=== PATIENT | female | born 2000 | race African-American/Black ===

== ENCOUNTER 2018-03-28 01:36 | Inpatient (IN) | payer OTHER ==
[2018-03-28] VITALS (27 sets, daily range): BP systolic 109–167; BP diastolic 58–108
[~2018-03-28] VITALS: Ht 167.6 cm; Wt 59.9 kg
[2018-03-28] MEDS ORDERED: HUMALOG100 UNIT/1 SUBQ (01:46)
[2018-03-28 01:59] LABS: ABSOLUTE NEUTROPHILS 5.1 thou/uL (1.4-8.2); BASOPHILS 0.3 % (0.0-2.0); EOSINOPHILS 0.2 % (0.0-3.0); HEMATOCRIT 44.3 % (37.0-47.0); HEMOGLOBIN 13.2 gm/dL (12.0-15.0); LYMPHOCYTES 37.3 % (24.0-44.0); MCH 28.9 pg (26.0-34.0); MCHC 29.9 g/dL (28.0-37.0); MCV 96.8 fL (80.0-100.0); MONOCYTES 7.2 % (1.0-8.0); PLATELET COUNT 349 thou/uL (150-400); RBC 4.57 mil/uL (4.20-5.00); RDW 15.6 % (10.5-14.5); WBC 9.2 thou/uL (4.0-11.0)
[2018-03-28 02:01] LABS: URINE BILIRUBIN NEGATIVE (Negative); URINE BLOOD 1+ (Negative); URINE CLARITY CLEAR; URINE COLOR YELLOW; URINE GLUCOSE-RANDOM* 3+ (Negative); URINE KETONES 3+ (Negative); URINE LEUKOCYTES NEGATIVE (Negative); URINE NITRITE NEGATIVE (Negative); URINE PROTEIN (DIPSTICK) 1+ (Negative); URINE SPECIFIC GRAVITY 1.025 (1.005-1.035); URINE UROBILINOGEN 0.2 E.U./dl (0.2-1.0)
[2018-03-28 02:09] LABS: CALCIUM 9.4 mg/dL (8.5-10.1); CREATININE 1.3 mg/dL (0.6-1.0)
[2018-03-28 02:12] LABS: ALBUMIN 3.7 g/dL (3.4-5.0); TOTAL BILIRUBIN 0.7 mg/dL (<0.1-1.0); TOTAL PROTEIN 8.3 g/dL (6.4-8.2)
[2018-03-28 02:13] LABS: POTASSIUM 5.3 mmol/L (3.5-5.1)
[2018-03-28 02:19] LABS: CASTS None Seen /LPF (None Seen); MUCUS 0-3 Light strn/LPF (None Seen); SQUAMOUS 4-10 Moderate /LPF (0-3)
[2018-03-28 02:20] LABS: BACTERIA 1-9 Few /HPF (None Seen); CRYSTALS None Seen /LPF (None Seen); URINE RBC 3-10 Few /HPF (0-2); URINE WBC 0-5 Rare /HPF (0-5)
[2018-03-28 03:13] LABS: BE(vivo) -23.5 mmol/L (-2 to +3); HCO3 5.6 mmol/L (22.0-26.0); PCO2 VENOUS 21.3 mmHg (41.0-51.0); PO2 VENOUS 60.3 mmHg (35.0-45.0)
[2018-03-28] MEDS ORDERED: LANTUS100 UNIT/M SUBQ (04:43)
[2018-03-28 04:59] LABS: ALBUMIN 3.3 g/dL (3.4-5.0); CALCIUM 8.6 mg/dL (8.5-10.1); CREATININE 1.2 mg/dL (0.6-1.0); MAGNESIUM 1.8 mg/dL (1.8-2.4); PHOSPHORUS 4.4 mg/dL (2.5-4.9); POTASSIUM 5.3 mmol/L (3.5-5.1)
[2018-03-28 12:11] LABS: ALBUMIN 2.8 g/dL (3.4-5.0); CALCIUM 8.2 mg/dL (8.5-10.1); CREATININE 0.9 mg/dL (0.6-1.0); MAGNESIUM 1.8 mg/dL (1.8-2.4); PHOSPHORUS 3.3 mg/dL (2.5-4.9)
[2018-03-28 16:43] LABS: ALBUMIN 2.6 g/dL (3.4-5.0); CALCIUM 8.1 mg/dL (8.5-10.1); CREATININE 0.8 mg/dL (0.6-1.0); MAGNESIUM 1.5 mg/dL (1.8-2.4); PHOSPHORUS 2.7 mg/dL (2.5-4.9); POTASSIUM 4.2 mmol/L (3.5-5.1)
[2018-03-28 20:23] LABS: ALBUMIN 2.7 g/dL (3.4-5.0); CALCIUM 8.4 mg/dL (8.5-10.1); CREATININE 0.8 mg/dL (0.6-1.0); MAGNESIUM 1.4 mg/dL (1.8-2.4); PHOSPHORUS 2.2 mg/dL (2.5-4.9); POTASSIUM 3.8 mmol/L (3.5-5.1)
[2018-03-28 23:06] LABS: GLYCOHEMOGLOBIN (HGB A1C) 14.3 % (4.8-5.6)
[2018-03-29] VITALS (18 sets, daily range): BP systolic 121–169; BP diastolic 70–112
[2018-03-29 04:57] LABS: ABSOLUTE NEUTROPHILS 4.2 thou/uL (1.4-8.2); BASOPHILS 0.1 % (0.0-2.0); EOSINOPHILS 0.8 % (0.0-3.0); HEMATOCRIT 37.1 % (37.0-47.0); HEMOGLOBIN 11.8 gm/dL (12.0-15.0); LYMPHOCYTES 29.1 % (24.0-44.0); MCH 28.9 pg (26.0-34.0); MCHC 31.8 g/dL (28.0-37.0); MONOCYTES 5.9 % (1.0-8.0); POLYS 64.1 % (36.0-66.0); RBC 4.09 mil/uL (4.20-5.00); RDW 14.7 % (10.5-14.5); WBC 6.5 thou/uL (4.0-11.0)
[2018-03-29 05:00] LABS: MCV 90.8 fL (80.0-100.0); PLATELET COUNT 262 thou/uL (150-400)
[2018-03-29 05:14] LABS: ALBUMIN 2.9 g/dL (3.4-5.0); CREATININE 1.1 mg/dL (0.6-1.0); MAGNESIUM 1.8 mg/dL (1.8-2.4); PHOSPHORUS 1.7 mg/dL (2.5-4.9); POTASSIUM 3.5 mmol/L (3.5-5.1); TOTAL BILIRUBIN 0.5 mg/dL (<0.1-1.0); TOTAL PROTEIN 6.8 g/dL (6.4-8.2)
[2018-03-29 05:45] LABS: LARGE PLATELETS OCCASIONAL
[2018-03-29 08:41] LABS: ALBUMIN 2.6 g/dL (3.4-5.0); CALCIUM 7.9 mg/dL (8.5-10.1); CREATININE 0.7 mg/dL (0.6-1.0); MAGNESIUM 1.8 mg/dL (1.8-2.4); PHOSPHORUS 2.3 mg/dL (2.5-4.9)
[2018-03-29 12:37] LABS: ALBUMIN 2.5 g/dL (3.4-5.0); CALCIUM 7.8 mg/dL (8.5-10.1); CREATININE 0.8 mg/dL (0.6-1.0); MAGNESIUM 1.6 mg/dL (1.8-2.4); PHOSPHORUS 3.4 mg/dL (2.5-4.9); POTASSIUM 3.7 mmol/L (3.5-5.1)
[2018-03-29 16:45] LABS: ALBUMIN 2.5 g/dL (3.4-5.0); CALCIUM 7.8 mg/dL (8.5-10.1); CREATININE 0.8 mg/dL (0.6-1.0); MAGNESIUM 2.3 mg/dL (1.8-2.4); PHOSPHORUS 2.9 mg/dL (2.5-4.9); POTASSIUM 3.8 mmol/L (3.5-5.1)
[2018-03-30] VITALS (11 sets, daily range): BP systolic 119–157; BP diastolic 74–113
[2018-03-30 04:09] LABS: ALBUMIN 2.6 g/dL (3.4-5.0); CALCIUM 8.3 mg/dL (8.5-10.1); CREATININE 0.7 mg/dL (0.6-1.0); POTASSIUM 3.2 mmol/L (3.5-5.1); TOTAL BILIRUBIN 0.5 mg/dL (<0.1-1.0); TOTAL PROTEIN 6.2 g/dL (6.4-8.2)
[2018-03-30 04:16] LABS: ABSOLUTE NEUTROPHILS 2.1 thou/uL (1.4-8.2); BASOPHILS 0.1 % (0.0-2.0); EOSINOPHILS 1.7 % (0.0-3.0); HEMATOCRIT 34.4 % (37.0-47.0); HEMOGLOBIN 11.7 gm/dL (12.0-15.0); LYMPHOCYTES 54.3 % (24.0-44.0); MCH 29.8 pg (26.0-34.0); MCV 87.6 fL (80.0-100.0); MONOCYTES 7.9 % (1.0-8.0); PLATELET COUNT 226 thou/uL (150-400); RBC 3.92 mil/uL (4.20-5.00); RDW 14.6 % (10.5-14.5); WBC 5.9 thou/uL (4.0-11.0)
[2018-03-30] MEDS ORDERED: LISINOPRIL10 MG PO (08:21)
[2018-03-30] MEDS ORDERED: LANTUS100 UNIT/M SUBQ (08:22)
[2018-03-30] MEDS ORDERED: NOVOLOG100 UNIT/1 SUBQ (08:22)
[2018-03-30 08:40] LABS: ALBUMIN 2.6 g/dL (3.4-5.0); CALCIUM 8.4 mg/dL (8.5-10.1); CREATININE 0.6 mg/dL (0.6-1.0); PHOSPHORUS 3.5 mg/dL (2.5-4.9); POTASSIUM 3.3 mmol/L (3.5-5.1)
== END 2018-03-30 11:13 | disposition home or self-care (01) | DRG 637 ==
LOC: ER 01:36 → EROBS 03:33 → ICU 03:33 → 3W 22:43 → ICU 03-29 07:10
PROVIDERS: Emergency Medicine; Hospitalist; Nurse Practitioner Family
DX: E10.10 Type 1 diabetes mellitus with ketoacidosis without coma (principal); N17.0 Acute kidney failure with tubular necrosis; Z88.0 Allergy status to penicillin; Z79.4 Long term (current) use of insulin; Z91.19 Patient's noncompliance with other medical treatment and regimen; Z79.899 Other long term (current) drug therapy; Z28.21 Immunization not carried out because of patient refusal
CPT/HCPCS: 10078; 10779

== ENCOUNTER 2018-05-22 15:22 | Emergency (ER) | payer OTHER ==
[~2018-05-22] VITALS: Ht 165.1 cm; Wt 59.0 kg
[~2018-05-22 15:22] MED LIST: HUMALOG100 UNIT/1 SUBQ; LANTUS100 UNIT/M SUBQ; LISINOPRIL10 MG PO; NOVOLOG100 UNIT/1 SUBQ
[2018-05-22 15:39] LABS: URINE BILIRUBIN NEGATIVE (Negative); URINE BLOOD 2+ (Negative); URINE CLARITY CLEAR; URINE COLOR YELLOW; URINE GLUCOSE-RANDOM* 3+ (Negative); URINE KETONES 1+ (Negative); URINE LEUKOCYTES-REFLEX NEGATIVE (Negative); URINE NITRITE-REFLEX NEGATIVE (Negative); URINE PROTEIN (DIPSTICK) 2+ (Negative); URINE UROBILINOGEN 0.2 E.U./dl (0.2-1.0)
[2018-05-22 15:46] LABS: CASTS None Seen /LPF (None Seen); SQUAMOUS 4-10 Moderate /LPF (0-3)
[2018-05-22 15:47] LABS: BACTERIA-REFLEX 1-9 Few /HPF (None Seen); CRYSTALS None Seen /LPF (None Seen); URINE RBC 3-10 Few /HPF (0-2); URINE WBC-REFLEX 0-5 Rare /HPF (0-5)
[2018-05-22 16:00] LABS: ABSOLUTE NEUTROPHILS 2.8 thou/uL (1.4-8.2); BASOPHILS 0.1 % (0.0-2.0); EOSINOPHILS 2.6 % (0.0-3.0); HEMATOCRIT 37.8 % (37.0-47.0); HEMOGLOBIN 12.5 gm/dL (12.0-15.0); LYMPHOCYTES 42.8 % (24.0-44.0); MCH 28.8 pg (26.0-34.0); MCHC 33.1 g/dL (28.0-37.0); MCV 87.1 fL (80.0-100.0); MONOCYTES 5.5 % (1.0-8.0); PLATELET COUNT 288 thou/uL (150-400); RBC 4.34 mil/uL (4.20-5.00); RDW 14.4 % (10.5-14.5); WBC 5.6 thou/uL (4.0-11.0)
[2018-05-22 16:08] LABS: CALCIUM 8.9 mg/dL (8.5-10.1); POTASSIUM 4.4 mmol/L (3.5-5.1)
[2018-05-22 16:14] LABS: ALBUMIN 3.1 g/dL (3.4-5.0); TOTAL BILIRUBIN 0.3 mg/dL (<0.1-1.0); TOTAL PROTEIN 7.2 g/dL (6.4-8.2)
[2018-05-22] MEDS ORDERED: LISINOPRIL10 MG PO (20:14)
[2018-05-22] MEDS ORDERED: DOXYCYCLINE 10100 MG PO (20:14)
[2018-05-22] MEDS ORDERED: PROBENECID500 MG PO (20:14)
[2018-05-22 20:27] VITALS: BP 157/109
== END 2018-05-22 20:28 | disposition home or self-care (01) ==
LOC: ER 15:22
PROVIDERS: Physician Assistant
DX: N73.9 Female pelvic inflammatory disease, unspecified (principal); E10.10 Type 1 diabetes mellitus with ketoacidosis without coma; Z88.0 Allergy status to penicillin

== ENCOUNTER 2018-06-28 23:10 | Emergency (ER) | payer OTHER ==
[~2018-06-28] VITALS: Ht 165.1 cm; Wt 61.2 kg
[~2018-06-28 23:10] MED LIST changes: +DOXYCYCLINE 10100 MG PO; +PROBENECID500 MG PO
[2018-06-28 23:50] LABS: BASOPHILS 0.2 % (0.0-2.0); EOSINOPHILS 1.3 % (0.0-3.0); HEMATOCRIT 34.5 % (37.0-47.0); HEMOGLOBIN 11.5 gm/dL (12.0-15.0); LYMPHOCYTES 48.2 % (24.0-44.0); MCH 28.4 pg (26.0-34.0); MCHC 33.2 g/dL (28.0-37.0); MCV 85.5 fL (80.0-100.0); MONOCYTES 4.4 % (1.0-8.0); PLATELET COUNT 250 thou/uL (150-400); POLYS 45.9 % (36.0-66.0); RBC 4.04 mil/uL (4.20-5.00); RDW 14.6 % (10.5-14.5); WBC 6.6 thou/uL (4.0-11.0)
[2018-06-28 23:58] LABS: ANION GAP 6 mmol/L (7-16); BUN 8 mg/dL (7-18); CALCIUM 8.8 mg/dL (8.5-10.1); CHLORIDE 96 mmol/L (98-107); CO2 28 mmol/L (21-32); CREATININE 0.8 mg/dL (0.6-1.0); GLUCOSE 452 mg/dL (74-106); POTASSIUM 3.8 mmol/L (3.5-5.1); SODIUM 130 mmol/L (136-145)
[2018-06-29 00:03] LABS: DIRECT BILIRUBIN < 0.1 mg/dL (<0.1-0.3); SGOT 11 U/L (15-37); SGPT 16 U/L (30-65); TOTAL BILIRUBIN 0.3 mg/dL (<0.1-1.0); TOTAL PROTEIN 6.6 g/dL (6.4-8.2)
[2018-06-29] MEDS ORDERED: TORADOL 10 MG T10 MG PO (03:01)
[2018-06-29] MEDS ORDERED: BENTYL 20 MG TA20 M1 PO (03:01)
[2018-06-29 04:48] VITALS: BP 157/99
== END 2018-06-29 04:48 | disposition home or self-care (01) ==
LOC: ER 23:10
PROVIDERS: Emergency Medicine
DX: E10.65 Type 1 diabetes mellitus with hyperglycemia (principal); R10.30 Lower abdominal pain, unspecified; M54.5 Low back pain; Z88.0 Allergy status to penicillin

== ENCOUNTER 2018-08-15 03:13 | Emergency (ER) | payer OTHER ==
[~2018-08-15] VITALS: Ht 165.1 cm; Wt 59.0 kg
[~2018-08-15 03:13] MED LIST changes: +BENTYL 20 MG TA20 M1 PO; +TORADOL 10 MG T10 MG PO
[2018-08-15 03:21] VITALS: BP 133/97
[2018-08-15] MEDS ORDERED: PEPCID20 MG PO (04:28)
== END 2018-08-15 04:38 | disposition home or self-care (01) ==
LOC: ER 03:13
DX: L50.9 Urticaria, unspecified (principal); E10.9 Type 1 diabetes mellitus without complications; Z88.0 Allergy status to penicillin

== ENCOUNTER 2019-05-25 17:09 | Emergency (ER) | payer OTHER ==
[~2019-05-25] VITALS: Ht 162.6 cm; Wt 63.5 kg
[~2019-05-25 17:09] MED LIST changes: +PEPCID20 MG PO
[2019-05-25 17:23] VITALS: BP 145/100
[2019-05-25 17:27] LABS: URINE BILIRUBIN NEGATIVE (Negative); URINE BLOOD 1+ (Negative); URINE CLARITY CLEAR; URINE COLOR YELLOW; URINE GLUCOSE-RANDOM* NEGATIVE (Negative); URINE KETONES NEGATIVE (Negative); URINE LEUKOCYTES-REFLEX NEGATIVE (Negative); URINE NITRITE-REFLEX NEGATIVE (Negative); URINE PROTEIN (DIPSTICK) 2+ (Negative); URINE UROBILINOGEN 0.2 E.U./dl (0.2-1.0)
[2019-05-25 17:35] LABS: BACTERIA-REFLEX 1-9 Few /HPF (None Seen); CASTS None Seen /LPF (None Seen); SQUAMOUS 0-3 Few /LPF (0-3); URINE RBC 3-10 Few /HPF (0-2); URINE WBC-REFLEX 0-5 Rare /HPF (0-5)
[2019-05-25 17:36] LABS: CRYSTALS None Seen /LPF (None Seen)
[2019-05-25] MEDS ORDERED: DIFLUCAN150 MG PO (18:45)
== END 2019-05-25 19:03 | disposition home or self-care (01) ==
LOC: ER 17:09
PROVIDERS: Physician Assistant
DX: B37.3 Candidiasis of vulva and vagina (principal); N89.8 Other specified noninflammatory disorders of vagina; E10.9 Type 1 diabetes mellitus without complications; Z88.0 Allergy status to penicillin

== ENCOUNTER 2019-09-15 20:14 | Inpatient (IN) | payer OTHER ==
[~2019-09-15] VITALS: Ht 165.1 cm; Wt 61.1 kg
[~2019-09-15 20:14] MED LIST changes: +DIFLUCAN150 MG PO
[2019-09-15 20:19] VITALS: BP 156/89
[2019-09-15 20:45] LABS: HEMATOCRIT 40.7 % (37.0-47.0); HEMOGLOBIN 12.7 gm/dL (12.0-15.0); MCH 28.8 pg (26.0-34.0); MCHC 31.1 g/dL (28.0-37.0); MCV 92.6 fL (80.0-100.0); PLATELET COUNT 359 thou/uL (150-400); WBC 13.9 thou/uL (4.0-11.0)
[2019-09-15 21:12] LABS: ALBUMIN 3.2 g/dL (3.4-5.0); CALCIUM 8.9 mg/dL (8.5-10.1); CREATININE 1.7 mg/dL (0.6-1.0); POTASSIUM 5.4 mmol/L (3.5-5.1); TOTAL BILIRUBIN 0.6 mg/dL (0.2-1.0); TOTAL PROTEIN 7.8 g/dL (6.4-8.2)
[2019-09-15 21:35] LABS: URINE BILIRUBIN NEGATIVE (Negative); URINE BLOOD 2+ (Negative); URINE CLARITY SL CLOUDY; URINE COLOR YELLOW; URINE GLUCOSE-RANDOM* 3+ (Negative); URINE KETONES 3+ (Negative); URINE NITRITE-REFLEX NEGATIVE (Negative); URINE PROTEIN (DIPSTICK) 2+ (Negative); URINE SPECIFIC GRAVITY 1.025 (1.005-1.035); URINE UROBILINOGEN 0.2 E.U./dl (0.2-1.0)
[2019-09-15] MEDS ORDERED: BASAGLAR K100 UNIT/1 SUBQ (21:38)
[2019-09-15 21:39] LABS: URINE LEUKOCYTES-REFLEX 1+ (Negative)
[2019-09-15] MEDS ORDERED: LABETALOL HCL100 MG PO (21:39)
[2019-09-15 21:45] LABS: SQUAMOUS 4-10 Moderate /LPF (0-3)
[2019-09-15 21:46] LABS: CASTS None Seen /LPF (None Seen); CRYSTALS None Seen /LPF (None Seen); URINE RBC 3-10 Few /HPF (0-2)
[2019-09-15 21:48] LABS: ABSOLUTE NEUTROPHILS 10.3 thou/uL (1.4-8.2); METAMYELOCYTES 1 %
[2019-09-15 21:49] LABS: LARGE PLATELETS FEW; PLATELET ESTIMATE NORMAL
--- NOTE | 2019-09-15 22:10 | NUR ---
Dr. De La Rosa notified that UA is from clean catch not straight cath
[2019-09-15 22:26] LABS: MAGNESIUM 2.3 mg/dL (1.8-2.4); PHOSPHORUS 7.1 mg/dL (2.5-4.9)
[2019-09-15 22:38] LABS: BE(vivo) -21.7 mmol/L (-2 to +3); HCO3 4.6 mmol/L (22.0-26.0); PO2 136.2 mmHg (80.0-100.0); sO2 98.1 % (92.0-98.0)
[2019-09-15 22:39] LABS: PCO2 13.3 mmHg (35.0-45.0)
[2019-09-15 22:47] VITALS: BP 145/89
--- NOTE | 2019-09-15 22:50 | NUR ---
ATTEMPTED TO CALL REPORT TO ICU NURSE AT THIS TIME. UNABLE TO TAKE REPORT
[2019-09-15 23:13] LABS: ALBUMIN 3.1 g/dL (3.4-5.0); CALCIUM 8.1 mg/dL (8.5-10.1); CREATININE 1.5 mg/dL (0.6-1.0); PHOSPHORUS 5.3 mg/dL (2.5-4.9)
[2019-09-15 23:20] VITALS: BP 145/96
[2019-09-15 23:20] LABS: POTASSIUM 4.4 mmol/L (3.5-5.1)
[2019-09-16] VITALS (32 sets, daily range): BP systolic 108–159; BP diastolic 67–111
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
[2019-09-16 03:41] LABS: ALBUMIN 2.6 g/dL (3.4-5.0); CALCIUM 7.7 mg/dL (8.5-10.1); CREATININE 1.1 mg/dL (0.6-1.0); MAGNESIUM 1.8 mg/dL (1.8-2.4); PHOSPHORUS 3.3 mg/dL (2.5-4.9)
[2019-09-16 08:19] LABS: ABSOLUTE NEUTROPHILS 6.4 thou/uL (1.4-8.2); BASOPHILS 0.5 % (0.0-2.0); EOSINOPHILS 0.2 % (0.0-3.0); HEMOGLOBIN 12.2 gm/dL (12.0-15.0); LYMPHOCYTES 29.5 % (24.0-44.0); MCH 28.7 pg (26.0-34.0); MCHC 32.9 g/dL (28.0-37.0); MONOCYTES 10.5 % (1.0-8.0); PLATELET COUNT 317 thou/uL (150-400); POLYS 59.3 % (36.0-66.0); RBC 4.25 mil/uL (4.20-5.00); RDW 14.3 % (10.5-14.5); WBC 10.8 thou/uL (4.0-11.0)
[2019-09-16 08:37] LABS: ALBUMIN 2.5 g/dL (3.4-5.0); CALCIUM 7.8 mg/dL (8.5-10.1); MAGNESIUM 1.8 mg/dL (1.8-2.4); PHOSPHORUS 2.7 mg/dL (2.5-4.9); TOTAL BILIRUBIN 0.5 mg/dL (0.2-1.0); TOTAL PROTEIN 6.4 g/dL (6.4-8.2)
--- NOTE | 2019-09-16 08:57 | NUR ---
SPIRITUAL CARE CONSULT [id number] WAS COMPLETED BY THIS CLINICAL TRANSPLANT COORDINATOR.
--- NOTE | 2019-09-16 09:45 | NUR ---
0945- Nurse updated patients mom, Olivia Guajardo, on care plan and current treatments, as well as patients status. She expressed when patient wakes up to have her call her. She also requested to receive a call with any changes. Nurse expressed plan of care of starting clear liquids and advancing diet as tolerated before the insulin gtt is discontinued. Nurse expressed patient was nauseated a bit ago, so plan to let nausea medication work then to get clear liquids started. Olivia expressed she understood plan of care.
--- NOTE | 2019-09-16 11:34 | NUR ---
1133- Nurse called Dr. Addison for clarification of orders. He expressed when patient taking solid oral intake and can sustain eating, give long acting insulin then wait 2 hours and discontinue insulin gtt. Nurse to encourage patient to wake up and eat. Hold off on sc insulin until she has some oral intake.
--- NOTE | 2019-09-16 12:16 | NUR ---
NURSE UPDATED PATIENT ON PLAN OF CARE AND INSULIN REGIMEN. PATIENT WOKE UP AND EXPRESSED SHE IS READY TO EAT. LUNCH ORDERED AND PLAN IS TO GIVE LONG ACTING INSULIN AT LUNCH TIME AND CONTINUE INSULIN GTT FOR 2 HOURS AFTERWARDS. THEN RN TO SHUT OFF FLUIDS AND GTT. SLIDING SCALE AND SCHEDULED TO START WITH SUPPER TIME. PATIENT EXPRESSED SHE UNDERSTOOD. PATIENT ALSO EXPRESSED SHE CALLED HER MOM AND TALKED WITH HER.
--- NOTE | 2019-09-16 14:07 | NUR ---
Case opened to follow for dc planning. Pt is currently in ICU d/t DKA. Pt is a type I diabetic. Still Cleaner Tube attempted to reach the pt via her cell phone. Spoke with her nurse and she is sleeping. CM cell number provided and requested pt to call with any questions or dc needs. Pt stays between multiple homes;mom, boyfriends and friends. Boyfriend does not have AC right now so she went to her mom's place. The pt has health ins through her mother. Her pcp office is [facility] and she last saw the ENROBER Amado Slaughter on 08/25/19. Appt made for the pt for next week Thursday 09/21 at 9am for post hospital f/u. Cm to voucher copays on scripts at dc. Pt provided with resources for emergency retirement or transitional housing support if needed. The pt indicates to staff that she is starting a new job in a few days. She has had trouble keeping a job due to her medical issues. ENDO has seen her and made recommendations regarding her followup care. Appt and resources documented in the pt's dc instructions. Likely dc out of ICU later today. Will follow for support and to provide med assist at dc.
--- NOTE | 2019-09-16 16:30 | NUR ---
8840- Nurse called patients mom and updated her on progress of care and current interventions. Pt mom expressed she feels patient has been depressed with everything going on in her life. She also expressed that her daughter has been battling with hives for a long time and they have tried multiple medications to help control them, without success. Patients mom also expressed that it is difficult to communicate proper eating habits with her daughter. Nurse listed and answered her questions. No further needs or questions at this time.
--- NOTE | 2019-09-16 17:50 | NUR ---
Patient progressing towards plan of care as evidenced by her tolerating food intake and liquid intake, off insulin gtt, anion gap closed. Nurse updated physician about hives, a second dose of benedryl provided IV per MD order. Nurse then updated physician on tachycardic situation, HR mainly 110-120 bpm, and blood pressure, this afternoon 130's-150's, systolic. No new orders at this time, will continue to monitor patient as she normalizes from DKA. Plan of care is to continue to monitor patients glucose level ACHS, monitor for nausea, monitor vital signs q1 hour, and assess patient needs prn.
--- NOTE | 2019-09-16 20:51 | NUR ---
UPON INITIAL ASSESSMENT, PT DENIED ANY PAIN OR N/V. SHE STATED HER ITCHING FROM HIVES IS IMPROVING. PT NOTED TO HAVE RAISED, RED HIVES TO BLE, BUE, HANDS, AND FEET. BEDTIME BG 96. PT WAS GIVEN A BEDTIME SNACK TO ENSURE BG DOES NOT DROP TOO LOW OVERNIGHT. WILL REASSESS BLOOD GLUCOSE LEVEL AGAIN DURING THE NIGHT. PT EXPRESSED CONCERN ABOUT MANAGING HER DIABETES ON HER OWN, ONCE DISCHARGED. SHE STATED HER HOME GLUCOMETER DOES NOT WORK. PT EDUCATED ON THE IMPORTANCE OF MANAGING HER DIABETES TO PREVENT FUTURE COMPLICATIONS. PT STATED SHE HAS TALKED TO [facility] ABOUT HER RESOURCES AFTER DISCHARGE. PT IS PROGRESSING TOWARD POC GOALS. WILL CONTINUE TO MONITOR DURING THE NIGHT.
[2019-09-17] VITALS (16 sets, daily range): BP systolic 117–172; BP diastolic 75–113
--- NOTE | 2019-09-17 03:08 | NUR ---
PT HAS BEEN SLEEPING MOST OF THE NIGHT. RESPIRATIONS EVEN AND UNLABORED. CONTINUES TO DENY ANY N/V OR PAIN. HR HAS IMPROVED FROM 110S TO 90S - LOW 100S. SBP ALSO IMPROVED FROM 140S TO 110S. UP W/ SBA TO TOILET. STEADY GAIT. GOOD URINE OUTPUT. PROGRESSING TOWARD POC GOALS.
[2019-09-17 05:38] LABS: ABSOLUTE NEUTROPHILS 3.2 thou/uL (1.4-8.2); EOSINOPHILS 0.8 % (0.0-3.0); HEMATOCRIT 34.2 % (37.0-47.0); HEMOGLOBIN 11.4 gm/dL (12.0-15.0); LYMPHOCYTES 50.9 % (24.0-44.0); MCH 29.3 pg (26.0-34.0); MCHC 33.4 g/dL (28.0-37.0); MCV 87.7 fL (80.0-100.0); MONOCYTES 8.3 % (1.0-8.0); PLATELET COUNT 262 thou/uL (150-400)
[2019-09-17 06:38] LABS: ALBUMIN 2.3 g/dL (3.4-5.0); CALCIUM 8.1 mg/dL (8.5-10.1); CREATININE 0.8 mg/dL (0.6-1.0); POTASSIUM 3.3 mmol/L (3.5-5.1); TOTAL BILIRUBIN 0.3 mg/dL (0.2-1.0)
--- NOTE | 2019-09-17 07:42 | NUR ---
ALERT AND ORIENTED AND DENIES PAIN OR NAUSEA. VITALS STABLE AND PATIENT STATES HOPING TO GO HOME SOON. TOLERATING DIET WELL. UP TO THE BATHROOM WITH SUPERVISION AND VOIDING W/O DIFFICULTY. WILL CONTINUE WITH POC, AWAITING ORDERS FOR TRANSFER OUT OF ICU.
--- NOTE | 2019-09-17 10:49 | HC ---
[facility] [place] [address] CONSULTATION Name: NEEL CASTILLO Eamon Room #: 248- ADM IN M.R.#: [id number] Admission: 09/15/19 Attend Phys: Harish Mcclelland MD Discharge: Date of : 98 Report #: [id number] THIS REPORT FOR: cc: BREANNA Lane family physician/PCP BREANNA Ariana family physician/PCP Ailyn Addison MD ~ CC: [facility] physician/PCP Power Alejo DATE OF SERVICE: 09/16/2019 CONSULTING PHYSICIAN: Dr. De La Rosa. REASON FOR CONSULTATION: Uncontrolled type 1 diabetes mellitus, DKA. HISTORY OF PRESENT ILLNESS: This is a 19-year-old female patient whose medical background is significant for type 1 diabetes mellitus diagnosed at the age of 1 years. The patient has had a course that is remarkable for multiple episodes of DKA in the past including one occurring 2 months ago. The patient is maintained on a regimen of Lantus insulin taken at a dose of 30 units daily along with NovoLog insulin that she variate according to a sliding scale and believes that she takes a total of 20 units daily. It seems that the patient has had interruptions in her insulin intake as of late due to financial and access issues. The patient noted issues of nausea, vomiting, palpitations, fatigue and shortness of breath, which prompted her to present to the ER where she was found to be in diabetic ketoacidosis with an initial anion gap of 33, severe hyperglycemia at 737 mg/dL as well as positive ketones in urine. The patient was subsequently admitted to the ICU for management with intravenous insulin and IV fluid resuscitation. I saw the patient this morning and she was feeling better; however, remains a bit nauseous. She does not have issues with diabetic retinopathy, neuropathy, or nephropathy. REVIEW OF SYSTEMS: CONSTITUTIONAL: Negative for fever, chills, but noted for fatigue. No body weight changes. HEENT: Negative for sore throat, sinus pain, ear drainage. PULMONARY: Noted for tachypnea, shortness of breath, but not hemoptysis. CARDIAC: Palpitations, no chest pain, syncope or presyncope. GASTROINTESTINAL: Multiple episodes of nausea, vomiting, abdominal discomfort. She is better at time of this dictation, but with persistent nausea. NEUROLOGY: Negative for loss of consciousness, headaches or seizure activity. PSYCHIATRIC: Negative for hallucinations, delusions. Otherwise, review of systems noncontributory unless mentioned in HPI. PAST MEDICAL HISTORY: [facility] [address] [place] [address] CONSULTATION Name: NEEL CASTILLO Room #: 248-P [facility] IN [facility]#: [id number] Admission: 09/15/19 Attend Phys: Harish Mcclelland MD Discharge: Date of : 98 Report #: [id number] 1. Type 1 diabetes mellitus. 2. Recurrent chronic hives. OUTPATIENT MEDICATIONS: 1. Lantus insulin 30 units daily. 2. NovoLog insulin according to a scale total of 20 units daily divided between her meals. 3. Benadryl. ALLERGIES: PENICILLIN. FAMILY HISTORY: Noncontributory. SOCIAL HISTORY: The patient is single. Denies use of tobacco, alcohol or illicit drugs. She is about to start a new job later this week. PHYSICAL EXAMINATION: GENERAL: Young -Cambodian female patient who appears a bit lethargic, but not in pain or distress. VITAL SIGNS: Blood pressure is 108/67 mmHg, heart rate is 111 beats per minute, respirations 10 per minute, temperature 36.9 degrees Celsius. PSYCH: The patient is lying in bed, appears a bit lethargic, but not in pain or distress. HEENT: Anicteric sclerae. Intact extraocular motions. NECK: Supple, without JVD, carotid bruits or lymphadenopathy. I do not appreciate thyromegaly. CHEST: Clear to auscultation with good air entry bilaterally. No wheeze or crackles. HEART: Regular rate and rhythm without murmurs or gallops. ABDOMEN: Soft, lax. No guarding. Active bowel sounds. EXTREMITIES: Lower extremity exam is negative for ankle edema. The patient has good pedal pulses bilaterally. NEUROLOGIC: Awake, alert and oriented to time, place and person. The remainder of her examination is nonfocal. LABORATORY DATA: White blood count 10.8, hemoglobin 12.2, hematocrit 37.0, and platelets 317. Blood glucose data over the past several hours, the patient has maintained blood glucose between 128 and 155 mg/dL while on IV insulin therapy and dextrose infusion. Sodium 134, potassium 4.0, chloride 104, CO2 of 18, anion gap this morning is at 12, but she presented with an anion gap of 33 last night, BUN 17, creatinine 1.0 and lipase 158. Total bilirubin 0.5, direct bilirubin less than 0.1, calcium 7.8, phosphorus 2.7, mag 1.8, alkaline phosphatase 134, ALT 19, total protein 6.4, albumin 2.5, EGFR 85. Lactic acid 0.5. Hemoglobin A1c has been ordered and is pending. She had a documented hemoglobin A1c in March [address] [place] [address] CONSULTATION Name: NEEL CASTILLO Room #: 248-P [facility] IN [facility]#: [id number] Admission: 09/15/19 Attend Phys: Harish Mcclelland MD Discharge: Date of : 98 Report #: [id number] 2018 at 14.3%. ASSESSMENT AND PLAN: 1. Diabetic ketoacidosis. The patient presented in diabetic ketoacidosis state. She has certainly resolved her issues with hyperglycemia and metabolic changes as of this morning. At this point, she is certainly able to transition to subcutaneous insulin therapy. Based on her IV insulin needs which are averaging at about 2 units per hour while on dextrose, her total daily needs to about 48 units daily. She will be given a dose of Lantus at 20 units now in addition to Humalog scheduled coverage for meals at 7 units t.i.d. a.c. while also maintaining low intensity Humalog supplemental scale coverage at low intensity. Blood glucose monitoring will commence a.c. and at bedtime and further adjustments will be made accordingly. 2. Type 1 diabetes mellitus, uncontrolled. As noted above, the patient has had an uncontrolled baseline with likely therapeutic interruptions, compliance issues, and multiple DKAs in the past. The patient was counseled at length about the importance of achieving and maintaining adequate glycemic control towards preventing future diabetic complications which she seems to understand well. Hemoglobin A1c has been ordered and is pending. I certainly appreciate this consultation. <ELECTRONICALLY SIGNED> By: Ailyn Addison MD 09/17/19 1049 [id number] Ailyn Addison MD /nt
[2019-09-17] MEDS ORDERED: LABETALOL HCL100 MG PO (13:17)
[2019-09-17] MEDS ORDERED: BASAGLAR K100 UNIT/1 SUBQ (13:17)
[2019-09-17] MEDS ORDERED: NOVOLOG100 UNIT/1 SUBQ (13:17)
[2019-09-17] MEDS ORDERED: HUMALOG100 UNIT/1 SUBQ ×2 (13:17→15:34)
[2019-09-17] MEDS ORDERED: LISINOPRIL10 MG PO (13:17)
--- NOTE | 2019-09-17 14:56 | NUR ---
DISCHARGE NOTE: SHALOM reviewed chart and spoke with nursing and attending physician. Pt is medically stable for discharge home today. Pt spoke with SW via phone to discuss copay for insulin and meds and housing resources. Info placed in pt's discharge summary. Pt to start a new job soon. Pt has insurance through her Mom. SHALOM discussed with attending physician. FILM REPLACEMENT ORDERER to write scripts and send to [facility]. SHALOM faxed face sheet to [facility] and spoke with Yessica, who will call SW with cost of copays. SHALOM updated pt's nurse. Pt's Mom will provide transportation home when meds are ready in outpatient pharmacy. No additional SW needs identified at this time, but is available to assist should needs arise.
--- NOTE | 2019-09-17 16:44 | NUR ---
DC ORDERS OBTAINED, PRESCRIPTION FILLED IN MAIN PHARMACY AND GIVEN TO PATIENT. DC INSTRUCTIONS GIVEN TO PATIENT AND QNS ANSWERED. IV DC'D AND PATIENT TAKEN TO E.D EXIT BY NURSING PERSONNEL.
[2019-09-19 06:07] LABS: ESTIMATED AVERAGE GLUCOSE > 398 mg/dL (()); GLYCOHEMOGLOBIN (HGB A1C) > 15.5 % (4.8-5.6)
== END 2019-09-17 16:50 | disposition home or self-care (01) | DRG 637 ==
LOC: ER 20:14 → ICU 22:10 → EROBS 22:10 → ICU 23:06
PROVIDERS: Emergency Medicine; Hospitalist; Nurse Practitioner Family; ADMIT Internal Medicine; ATTEND Internal Medicine
DX: E10.10 Type 1 diabetes mellitus with ketoacidosis without coma (principal); N17.0 Acute kidney failure with tubular necrosis; R65.10 Systemic inflammatory response syndrome (SIRS) of non-infectious origin without acute organ dysfunction; L50.8 Other urticaria; I10 Essential (primary) hypertension; F43.20 Adjustment disorder, unspecified; Z88.0 Allergy status to penicillin; Z81.8 Family history of other mental and behavioral disorders; Z82.49 Family history of ischemic heart disease and other diseases of the circulatory system; Z91.14 Patient's other noncompliance with medication regimen; Z79.899 Other long term (current) drug therapy
CPT/HCPCS: 10078

== ENCOUNTER 2019-10-25 11:47 | Emergency (ER) | payer OTHER ==
[~2019-10-25] VITALS: Ht 162.6 cm; Wt 63.5 kg
[~2019-10-25 11:47] MED LIST changes: +BASAGLAR K100 UNIT/1 SUBQ; +LABETALOL HCL100 MG PO
[2019-10-25] MEDS ORDERED: ZESTRIL20 MG PO (11:54)
[2019-10-25] MEDS ORDERED: LANTUS SUBQ (11:54)
[2019-10-25 12:18] LABS: ABSOLUTE NEUTROPHILS 6.1 thou/uL (1.4-8.2); BASOPHILS 0.3 % (0.0-2.0); EOSINOPHILS 0.7 % (0.0-3.0); HEMATOCRIT 35.9 % (37.0-47.0); HEMOGLOBIN 11.9 gm/dL (12.0-15.0); LYMPHOCYTES 21.7 % (24.0-44.0); MCH 29.1 pg (26.0-34.0); MCV 88.1 fL (80.0-100.0); MONOCYTES 8.4 % (1.0-8.0); PLATELET COUNT 300 thou/uL (150-400); POLYS 68.9 % (36.0-66.0); RBC 4.08 mil/uL (4.20-5.00); RDW 13.8 % (10.5-14.5); WBC 8.8 thou/uL (4.0-11.0)
[2019-10-25 12:51] LABS: BE(vivo) 0.7 mmol/L (-2 to +3); HCO3 26.7 mmol/L (22.0-26.0); PCO2 VENOUS 48.6 mmHg (41.0-51.0); PO2 VENOUS 25.7 mmHg (35.0-45.0)
[2019-10-25 12:57] LABS: URINE BILIRUBIN NEGATIVE (Negative); URINE BLOOD 2+ (Negative); URINE CLARITY CLEAR; URINE COLOR YELLOW; URINE GLUCOSE-RANDOM* 3+ (Negative); URINE KETONES 1+ (Negative); URINE LEUKOCYTES-REFLEX NEGATIVE (Negative); URINE NITRITE-REFLEX NEGATIVE (Negative); URINE PROTEIN (DIPSTICK) 2+ (Negative); URINE UROBILINOGEN 0.2 E.U./dl (0.2-1.0)
[2019-10-25 13:14] LABS: CASTS None Seen /LPF (None Seen); SQUAMOUS 4-10 Moderate /LPF (0-3)
[2019-10-25 13:16] LABS: BACTERIA-REFLEX 1-9 Few /HPF (None Seen); CRYSTALS None Seen /LPF (None Seen); URINE RBC 0-2 Rare /HPF (0-2); URINE WBC-REFLEX 0-5 Rare /HPF (0-5); YEAST-REFLEX Present (None Seen)
[2019-10-25 13:30] LABS: ALBUMIN 2.8 g/dL (3.4-5.0); CALCIUM 8.9 mg/dL (8.5-10.1); CREATININE 1.2 mg/dL (0.6-1.0); POTASSIUM 4.1 mmol/L (3.5-5.1); TOTAL BILIRUBIN 0.3 mg/dL (0.2-1.0); TOTAL PROTEIN 7.6 g/dL (6.4-8.2)
[2019-10-25] MEDS ORDERED: DIFLUCAN150 MG PO (14:19)
[2019-10-25] MEDS ORDERED: CLEOCIN HCL150 MG PO (14:19)
[2019-10-25 17:07] VITALS: BP 143/107
== END 2019-10-25 17:09 | disposition home or self-care (01) ==
LOC: ER 11:47
PROVIDERS: Physician Assistant
DX: S40.861A Insect bite (nonvenomous) of right upper arm, initial encounter (principal); L03.113 Cellulitis of right upper limb; E86.0 Dehydration; B37.3 Candidiasis of vulva and vagina; E10.65 Type 1 diabetes mellitus with hyperglycemia; Z79.4 Long term (current) use of insulin; Z79.899 Other long term (current) drug therapy; Z88.0 Allergy status to penicillin; W57.XXXA Bitten or stung by nonvenomous insect and other nonvenomous arthropods, initial encounter; Y93.89 Activity, other specified; Y92.89 Other specified places as the place of occurrence of the external cause; Y99.8 Other external cause status

== ENCOUNTER 2020-01-22 07:36 | Inpatient (IN) | payer OTHER ==
[2020-01-22] VITALS (32 sets, daily range): BP systolic 112–188; BP diastolic 57–115
[~2020-01-22] VITALS: Ht 165.1 cm; Wt 56.7 kg
[~2020-01-22 07:36] MED LIST changes: +CLEOCIN HCL150 MG PO; +LANTUS SUBQ; +ZESTRIL20 MG PO
[2020-01-22 08:25] LABS: ALBUMIN 3.4 g/dL (3.4-5.0); CALCIUM 9.2 mg/dL (8.5-10.1); CREATININE 1.5 mg/dL (0.6-1.0); MAGNESIUM 1.8 mg/dL (1.8-2.4); POTASSIUM 4.2 mmol/L (3.5-5.1); TOTAL BILIRUBIN 0.5 mg/dL (0.2-1.0); TOTAL PROTEIN 8.3 g/dL (6.4-8.2)
[2020-01-22 08:30] LABS: BE(vivo) -14.3 mmol/L (-2 to +3); PCO2 VENOUS 25.3 mmHg (41.0-51.0); PO2 VENOUS 100.6 mmHg (35.0-45.0)
[2020-01-22 08:34] LABS: ABSOLUTE NEUTROPHILS 6.8 thou/uL (1.4-8.2); BASOPHILS 0.2 % (0.0-2.0); EOSINOPHILS 0.9 % (0.0-3.0); HEMATOCRIT 40.7 % (37.0-47.0); HEMOGLOBIN 12.7 gm/dL (12.0-15.0); LYMPHOCYTES 32.3 % (24.0-44.0); MCH 28.4 pg (26.0-34.0); MCHC 31.2 g/dL (28.0-37.0); MCV 90.9 fL (80.0-100.0); MONOCYTES 6.1 % (1.0-8.0); PLATELET COUNT 332 thou/uL (150-400); POLYS 60.5 % (36.0-66.0); RBC 4.47 mil/uL (4.20-5.00); RDW 14.7 % (10.5-14.5); WBC 11.3 thou/uL (4.0-11.0)
[2020-01-22 08:40] LABS: URINE BILIRUBIN NEGATIVE (Negative); URINE BLOOD 1+ (Negative); URINE CLARITY CLEAR; URINE COLOR YELLOW; URINE GLUCOSE-RANDOM* 3+ (Negative); URINE KETONES 3+ (Negative); URINE LEUKOCYTES-REFLEX TRACE (Negative); URINE PROTEIN (DIPSTICK) 2+ (Negative); URINE UROBILINOGEN 0.2 E.U./dl (0.2-1.0)
[2020-01-22 08:41] LABS: URINE NITRITE-REFLEX POSITIVE (Negative)
[2020-01-22 08:56] LABS: CASTS None Seen /LPF (None Seen); CRYSTALS None Seen /LPF (None Seen); SQUAMOUS 0-3 Few /LPF (0-3)
[2020-01-22 08:58] LABS: BACTERIA-REFLEX 1-9 Few /HPF (None Seen); URINE RBC 0-2 Rare /HPF (0-2); URINE WBC-REFLEX 0-5 Rare /HPF (0-5)
[2020-01-22 09:13] LABS: CREATININE 1.3 mg/dL (0.6-1.0); POTASSIUM 4.5 mmol/L (3.5-5.1)
[2020-01-22 10:20] LABS: LARGE PLATELETS FEW
[2020-01-22 14:05] LABS: CALCIUM 8.3 mg/dL (8.5-10.1); CREATININE 1.3 mg/dL (0.6-1.0); MAGNESIUM 1.8 mg/dL (1.8-2.4); PHOSPHORUS 2.7 mg/dL (2.5-4.9); POTASSIUM 3.9 mmol/L (3.5-5.1)
--- NOTE | 2020-01-22 15:18 | NUR ---
chart review. she new to icu today. she has been her in past for dm in october and september. cm tried cell number listed for patrick and lady answer stated wrong number and remove this number. cm spoke with patrick mom mark via phone call, she stated only know what going on from my other daughter. she lives with her boyfriend and i don't know what goes on over there. she not listening to me. he boyfriend can transport her home. she not called be since she been in hospital. her cell phone is out of service per mark. will cont following as needed for dc needs.
[2020-01-22 18:22] LABS: ALBUMIN 2.6 g/dL (3.4-5.0); CREATININE 1.1 mg/dL (0.6-1.0); MAGNESIUM 1.6 mg/dL (1.8-2.4); PHOSPHORUS 2.2 mg/dL (2.5-4.9); POTASSIUM 3.8 mmol/L (3.5-5.1)
[2020-01-22] MEDS ORDERED: BENADRYL ALLERG25 MG PO (19:08)
--- NOTE | 2020-01-22 19:47 | NUR ---
Patient here from ER via stretcher. Patient able to get up and transfer independantly to ICU bed. Patient drowsy but oriented x4. Patient is on DKA protocol. See flowsheet for details. Labs drawn Q4h per orders. Patient is tearful. Had a long talk with her about her situation. She feels like she is a burden on whomever she is staying with. She does not have a good relationsihip with her mother and is living with her boyfriend and his mother. Patient is progressing towards plan of care. See documentation on interventions for assessment details.
[2020-01-22 21:45] LABS: ALBUMIN 2.4 g/dL (3.4-5.0); CALCIUM 7.9 mg/dL (8.5-10.1); CREATININE 0.9 mg/dL (0.6-1.0); MAGNESIUM 1.6 mg/dL (1.8-2.4); POTASSIUM 3.7 mmol/L (3.5-5.1)
[2020-01-23] VITALS (15 sets, daily range): BP systolic 134–185; BP diastolic 86–129
[2020-01-23 01:27] LABS: HEMATOCRIT 32.4 % (37.0-47.0); MCH 28.4 pg (26.0-34.0); MCHC 32.2 g/dL (28.0-37.0); MCV 88.1 fL (80.0-100.0); RBC 3.68 mil/uL (4.20-5.00); WBC 11.7 thou/uL (4.0-11.0)
[2020-01-23 01:30] LABS: HEMOGLOBIN 10.4 gm/dL (12.0-15.0)
[2020-01-23 01:35] LABS: ALBUMIN 2.4 g/dL (3.4-5.0); CALCIUM 7.9 mg/dL (8.5-10.1); CREATININE 0.9 mg/dL (0.6-1.0); MAGNESIUM 2.1 mg/dL (1.8-2.4); PHOSPHORUS 2.2 mg/dL (2.5-4.9); POTASSIUM 3.6 mmol/L (3.5-5.1)
--- NOTE | 2020-01-23 05:30 | NUR ---
0530- Progress report Patient slowly progressing towards plan of care as evidenced by anion gap closing. Glucose readings and insulin gtt as documented. Education provided and patient kept informed of next lab draws and glucose checks. Adequate urine output noted as 1000ml this shift. She denies nausea. Hives noted on her right arm and bilateral thighs. Nurse Practitioner ordered benadryl, which was given with some relief. This morning, hives noted to be increasing in amount. Nurse practitioner, Attila, expressed nurse may give benadryl dose early, at time of call, for hives and itching. This was done. Patient resting at this time. Nurse to continue to monitor patient status.
[2020-01-23 06:09] LABS: ALBUMIN 2.5 g/dL (3.4-5.0); CALCIUM 7.8 mg/dL (8.5-10.1); CREATININE 0.9 mg/dL (0.6-1.0); MAGNESIUM 1.8 mg/dL (1.8-2.4); PHOSPHORUS 2.2 mg/dL (2.5-4.9); POTASSIUM 3.4 mmol/L (3.5-5.1)
[2020-01-23 10:02] LABS: CALCIUM 7.8 mg/dL (8.5-10.1); CREATININE 0.8 mg/dL (0.6-1.0); POTASSIUM 3.6 mmol/L (3.5-5.1)
[2020-01-23 10:23] LABS: PHOSPHORUS 2.5 mg/dL (2.5-4.9)
[2020-01-23 10:29] LABS: ALBUMIN 2.5 g/dL (3.4-5.0)
--- NOTE | 2020-01-23 15:02 | NUR ---
Pt transferred from ICU. A&ox4. SBA. Denies pain. Advanced to carb-controlled diet. Pt states she is hungry and would like to eat a real meal today.
--- NOTE | 2020-01-23 15:25 | NUR ---
Patient sleepy this am. Heart rate and rhythm stable. Pt remains with slightly elevated blood pressure. Dr. Aguilar reordered patient lisinopril, gave dose today. Adequate oxygenation on room air. Tolerated clear liquid breakfast. Advanced to carb controlled diet for lunch. D/C'd insulin gtt and fluids. Gave ordered Lantus and Humalog per SSI. Denies nausea. Dr. Addison came to see the patient this am. Patient is progressing towards goals. See documentation on interventions for assessment details. Report given to 4S RN. Patient transfered per wheelchair to room 439.
--- NOTE | 2020-01-24 02:29 | NUR ---
PT AMBULATING TO BATHROOM INDEPENDENTLY AND IS TOLERATING WELL. DENIES PAIN. RESTING COMFORTABLY. NO NEEDS VOICED. CALL LIGHT WITHIN REACH. FREQUENT OBSERVATION.
[2020-01-24 05:38] LABS: ABSOLUTE NEUTROPHILS 4.1 thou/uL (1.4-8.2); BASOPHILS 0.5 % (0.0-2.0); EOSINOPHILS 1.2 % (0.0-3.0); HEMATOCRIT 31.9 % (37.0-47.0); HEMOGLOBIN 10.3 gm/dL (12.0-15.0); LYMPHOCYTES 49.5 % (24.0-44.0); MCH 28.9 pg (26.0-34.0); MCHC 32.4 g/dL (28.0-37.0); MCV 89.1 fL (80.0-100.0); MONOCYTES 6.8 % (1.0-8.0); PLATELET COUNT 238 thou/uL (150-400); RBC 3.59 mil/uL (4.20-5.00); RDW 14.4 % (10.5-14.5); WBC 9.7 thou/uL (4.0-11.0)
[2020-01-24 06:29] LABS: ALBUMIN 2.3 g/dL (3.4-5.0); CALCIUM 8.2 mg/dL (8.5-10.1); CREATININE 0.8 mg/dL (0.6-1.0); TOTAL BILIRUBIN 0.1 mg/dL (0.2-1.0); TOTAL PROTEIN 5.9 g/dL (6.4-8.2)
[2020-01-24 08:02] VITALS: BP 147/110
--- NOTE | 2020-01-24 08:52 | NUR ---
assumed care at 0700. Jacko x4. admitted 01/22/20 for DKA. Pt complains of dressing of IV. Will monitor the IV to see if there needs to be a new IV. Pt states no pain. Independent physical activity. Low fall risk precaution. Tachycardia and high blood pressure. Administered bp meds at 0845 AM. Pt notice hives and administered benadryl to help. pt is pleasant. Call light is near patient. voids with no problem.
[2020-01-24] MEDS ORDERED: KEFLEX500 M1 PO (09:19)
[2020-01-24] MEDS ORDERED: CLARITIN10 M3 PO (09:19)
[2020-01-24 10:56] VITALS: BP 147/110
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
== END 2020-01-24 11:55 | disposition home or self-care (01) | DRG 871 ==
LOC: ER → EROBS 09:04 → ICU 11:41 → 4S 01-23 14:47
PROVIDERS: Emergency Medicine; ADMIT Hospitalist; ATTEND Hospitalist
DX: A41.9 Sepsis, unspecified organism (principal); E10.10 Type 1 diabetes mellitus with ketoacidosis without coma; N17.0 Acute kidney failure with tubular necrosis; E43 Unspecified severe protein-calorie malnutrition; N39.0 Urinary tract infection, site not specified; N17.9 Acute kidney failure, unspecified; F41.9 Anxiety disorder, unspecified; F32.9 Major depressive disorder, single episode, unspecified; I10 Essential (primary) hypertension; E86.0 Dehydration; Z79.899 Other long term (current) drug therapy; Z79.4 Long term (current) use of insulin; Z88.0 Allergy status to penicillin; L50.9 Urticaria, unspecified
CPT/HCPCS: 10100; 10203

== ENCOUNTER 2020-04-25 22:40 | Emergency (ER) | payer OTHER ==
[~2020-04-25] VITALS: Ht 165.1 cm; Wt 65.8 kg
[~2020-04-25 22:40] MED LIST changes: +BENADRYL ALLERG25 MG PO; +CLARITIN10 M3 PO; +KEFLEX500 M1 PO
[2020-04-25] MEDS ORDERED: BASAGLAR K100 UNIT/1 SUBQ (22:54)
[2020-04-25] MEDS ORDERED: HUMALOG100 UNIT/1 SUBQ (22:54)
[2020-04-25 23:34] LABS: CALCIUM 9.1 mg/dL (8.5-10.1); POTASSIUM 4.5 mmol/L (3.5-5.1)
[2020-04-26] MEDS ORDERED: BACTRIM DS TAB1 EACH PO (00:02)
[2020-04-26 00:27] VITALS: BP 175/113
== END 2020-04-26 00:28 | disposition home or self-care (01) ==
LOC: ER 22:40
PROVIDERS: Emergency Medicine
DX: L02.11 Cutaneous abscess of neck (principal); R51.9 Headache, unspecified; E10.9 Type 1 diabetes mellitus without complications; F41.9 Anxiety disorder, unspecified; F32.9 Major depressive disorder, single episode, unspecified; I10 Essential (primary) hypertension; Z79.899 Other long term (current) drug therapy; Z79.4 Long term (current) use of insulin; Z88.0 Allergy status to penicillin

== ENCOUNTER 2020-04-27 23:33 | Inpatient (IN) | payer OTHER ==
[~2020-04-27] VITALS: Ht 165.1 cm; Wt 69.9 kg
[~2020-04-27 23:33] MED LIST changes: +BACTRIM DS TAB1 EACH PO
[2020-04-27 23:39] VITALS: BP 166/102
[2020-04-28 00:50] LABS: BASOPHILS 0.5 % (0.0-2.0); EOSINOPHILS 0.1 % (0.0-3.0); HEMATOCRIT 32.1 % (37.0-47.0); HEMOGLOBIN 10.6 gm/dL (12.0-15.0); LYMPHOCYTES 9.4 % (24.0-44.0); MCH 29.1 pg (26.0-34.0); MCHC 33.1 g/dL (28.0-37.0); MCV 87.8 fL (80.0-100.0); MONOCYTES 5.2 % (1.0-8.0); PLATELET COUNT 298 thou/uL (150-400); POLYS 84.8 % (36.0-66.0); RBC 3.66 mil/uL (4.20-5.00); RDW 14.1 % (10.5-14.5); WBC 14.1 thou/uL (4.0-11.0)
[2020-04-28 00:55] LABS: ANION GAP 13 mmol/L (7-16); BUN 8 mg/dL (7-18); CALCIUM 9.1 mg/dL (8.5-10.1); CHLORIDE 92 mmol/L (98-107); CO2 25 mmol/L (21-32); CREATININE 1.3 mg/dL (0.6-1.0); GLUCOSE 354 mg/dL (74-106); POTASSIUM 4.1 mmol/L (3.5-5.1); SODIUM 130 mmol/L (136-145)
[2020-04-28 01:01] LABS: URINE BILIRUBIN NEGATIVE (Negative); URINE BLOOD 3+ (Negative); URINE CLARITY CLEAR; URINE COLOR YELLOW; URINE GLUCOSE-RANDOM* 3+ (Negative); URINE KETONES 2+ (Negative); URINE LEUKOCYTES-REFLEX NEGATIVE (Negative); URINE NITRITE-REFLEX NEGATIVE (Negative); URINE PROTEIN (DIPSTICK) 3+ (Negative); URINE UROBILINOGEN 0.2 E.U./dl (0.2-1.0)
[2020-04-28 01:01] LABS: ALBUMIN 2.3 g/dL (3.4-5.0); DIRECT BILIRUBIN < 0.1 mg/dL (<0.1-0.2); LIPASE 83 U/L (73-393); SGOT 33 U/L (15-37); SGPT 45 U/L (30-65); TOTAL BILIRUBIN 0.2 mg/dL (0.2-1.0); TOTAL PROTEIN 7.5 g/dL (6.4-8.2)
[2020-04-28 01:19] LABS: SQUAMOUS 0-3 Few /LPF (0-3)
[2020-04-28 01:20] LABS: BACTERIA-REFLEX 1-9 Few /HPF (None Seen); CASTS None Seen /LPF (None Seen); CRYSTALS None Seen /LPF (None Seen); MUCUS 0-3 Light strn/LPF (None Seen); URINE WBC-REFLEX 0-5 Rare /HPF (0-5)
[2020-04-28 06:41] VITALS: BP 159/109
--- NOTE | 2020-04-28 07:10 | NUR ---
DR CHARLY APARICIO PAGED TO REQUEST SOMETHING FOR PAIN AND NAUSEA
--- NOTE | 2020-04-28 07:38 | NUR ---
SPOKE WITH DR. YOO REGARDING PAIN AND NAUSEA, DR ORDERED MORPHINE 4 MG Q4H PRN AND ZOFRAN 4 MG Q6H PRN. CONFIRMED ORDERS VERBAL FEEDBACK
--- NOTE | 2020-04-28 14:49 | EKG ---
[address] [place] [address] ELECTROCARDIOGRAM REPORT Name: NEEL CASTILLO Room #: 170-11 ADM IN M.R.#: [id number] Admission: 04/28/20 Attend Phys: Pranav Muñoz MD Discharge: Date of : 98 Report #: [id number] [facility] ED Test Date: 2020-04-27 Test Time: 23:47:00 Pat Name: NEEL CASTILLO Department: Room: 170 11 Gender: F Hunter Trapper: BIGG : 2000 Requested By: Pranav Muñoz Order Number: [id number] MD: Edward Hurst Measurements Intervals [place] Rate: 143 P: -6 LA: 132 QRS: 1 QRSD: 69 T: 36 QT: 257 QTc: 397 Interpretive Statements Sinus tachycardia Probable left atrial enlargement Baseline wander in lead(s) V3,V4,V6 No previous ECG available for comparison Electronically Signed On 04-28-2020 14:49:24 FOLLOW UP REP by Edward Hurst [email or web address] <ELECTRONICALLY SIGNED> By: Edward Hurst MD, [facility] 04/28/20 1449 2347 2347 Edward Hurst MD, FACC /EPI
[2020-04-28 15:14] VITALS: BP 135/98
[2020-04-28 16:29] VITALS: BP 131/65
[2020-04-28 17:01] VITALS: BP 153/104
--- NOTE | 2020-04-28 19:03 | NUR ---
ASSUMED CARE OF PATIENT AT 1740 AFTER SHE ARRIVED TO UNIT. HX AND EDUCATION DONE. PATIENT C/O HEAD PAIN (MIGRAINE) AND RUQ PAIN. PATIENT STATED "TRAMADOL MADE MY PAIN WAYYY WAY WORSE". IV ON L FA NOT WORKING; WILL TRY TO REINFORCE DRESSING. PATIENT MOTHER JUST INFORMED US ABOUT PATIENT "HASN'T PEED SINCE LAST NIGHT AT 10". ENDORSED TO NOC RN
[2020-04-28 20:00] VITALS: BP 143/86
[2020-04-28 20:34] VITALS: BP 143/86
--- NOTE | 2020-04-29 02:36 | NUR ---
PT CARE ASSUMED WITH PATIENT IN BED AND MOTHER AT BEDSIDE.PT IS A/O X4.PT IS UP AD PARRISH AND EDUCATED TO CALL IF NEEDED.PT ADMISSION COMPLETED .PT COMPLAINED OF NOT VOID.PT ENCOURAGED TO TAKE FLUIDS AND PT VOIDED OK.MORPHINE ORDERED FOR PAIN MANAGED.PT NPO MIDNIGHT FOR APPENDECTOMY TODAY.PT IS ACCUCHECK ACHS WITH SSI.PT IV ON LT FA WITH NS AT 100CC/HR.WILL CONTINUE TO MONITOR POC
[2020-04-29 04:20] VITALS: BP 157/116
[2020-04-29 05:57] LABS: HEMATOCRIT 28.5 % (37.0-47.0); HEMOGLOBIN 9.2 gm/dL (12.0-15.0); MCH 28.7 pg (26.0-34.0); MCHC 32.3 g/dL (28.0-37.0); MCV 88.8 fL (80.0-100.0); RBC 3.21 mil/uL (4.20-5.00); RDW 14.1 % (10.5-14.5); WBC 6.9 thou/uL (4.0-11.0)
[2020-04-29 05:59] LABS: ALBUMIN 1.7 g/dL (3.4-5.0); CALCIUM 8.3 mg/dL (8.5-10.1); CREATININE 1.4 mg/dL (0.6-1.0); PHOSPHORUS 3.8 mg/dL (2.5-4.9); POTASSIUM 3.7 mmol/L (3.5-5.1)
[2020-04-29 06:05] VITALS: BP 151/92
[2020-04-29 07:58] VITALS: BP 132/95
--- NOTE | 2020-04-29 11:06 | NUR ---
PT A&OX4, VSS, PAIN RIGHT SIDE OF ABDOMEN PER PATIENT,MORPHINE GIVEN. PATIENT HAS BEEN NPO SINCE MIDNIGHT PER FARROWING MANAGER NURSE. NO SIGNS OF DISTRESS. PO MEDS HELD. ASSESSMENT COMPLETED. WILL CONTINUE TO MONITOR.
--- NOTE | 2020-04-29 17:11 | NUR ---
POST SURGERY: ARRIVED FROM PACU ON UNIT WANTING TO "EAT SOON POSSIBLE" . CHICKEN BROTH STARTED FOR NOW, WILL ADVANCE ABLE. REPORTS PAIN=7/10 CURRENTLY. ON ROOM AIR, DIABETIC WILL TAKE READINS AC+HS. MOM ROCHELLE IN ROOM NOW, INTRODUCED HER TO UNIT AND VISITING HOURS TODAY AND WEEKEND.
--- NOTE | 2020-04-29 17:17 | NUR ---
PT.'S MOM AT BEDSIDE. CHICKEN BROTH STARTED. HR-113. LOW GRADE TEMP=99.2
[2020-04-29 19:30] VITALS: BP 134/82
[2020-04-30] VITALS (7 sets, daily range): BP systolic 119–129; BP diastolic 78–89
[2020-04-30 03:45] LABS: HEMATOCRIT 25.9 % (37.0-47.0); HEMOGLOBIN 8.3 gm/dL (12.0-15.0); MCH 28.3 pg (26.0-34.0); MCHC 31.9 g/dL (28.0-37.0); MCV 88.7 fL (80.0-100.0); RBC 2.92 mil/uL (4.20-5.00); RDW 14.4 % (10.5-14.5)
[2020-04-30 04:04] LABS: ALBUMIN 1.6 g/dL (3.4-5.0); CALCIUM 8.2 mg/dL (8.5-10.1); CREATININE 1.7 mg/dL (0.6-1.0); PHOSPHORUS 3.7 mg/dL (2.5-4.9); POTASSIUM 4.5 mmol/L (3.5-5.1)
--- NOTE | 2020-04-30 05:11 | NUR ---
assumed pt care at the chnage of shift, pt is awake, alert and orientedx4, st on the monitor, assessments as charted, pain meds given for generalized abdominal pain of a 9/10 with partial relief, bs greater than 500, insulin given and social service director made aware, bs still elevated after insulin given, new orders received and given as per jun, bs better, endocrinology consulted, c/o nausea, zofran givenx1, no further complains, fluids given as per jun, no distress noted, vss, will pass on report
[2020-04-30] MEDS ORDERED: OXYCODONE HCL 55 MG PO (10:15)
[2020-04-30] MEDS ORDERED: CLONIDINE HCL0.1 MG PO (12:03)
--- NOTE | 2020-04-30 15:47 | NUR ---
PT CARE ASSUMED AT 0700. ASSESSMENTS CHARTED. MEDICATIONS CHARTED. RFA IV. TOILET. SINUS TACHYCARDIA. LAPAROTOMY SITES SEALED WITH DERMABOND, C/D/I. PT TO BE DISCHARGED HOME. PT GIVEN DR SPENCE'S OFFICE PHONE NUMBER PER DR DENIS REQUEST FOR APPOINTMENT. DISCHARGE PAPERWORK SIGNED, TELEMETRY D/C'D. IV D/C'D.
[2020-05-01 07:07] LABS: GLYCOHEMOGLOBIN (HGB A1C) 16.5 % (4.8-5.6)
--- NOTE | 2020-05-03 17:06 | PATH ---
[facility] [address] [place] [address] PATHOLOGY RPT PROCEDURE Name: ELISE GUAJARDO Room #: 208-P [facility] IN M.R.#: [id number] Admission: 04/28/20 Date of : 98 Discharge: 04/30/20 Report #: [id number] Path Case #: [id number] [facility] Accession Number: [id number] . 01 Material submitted: . appendix - APPENDIX . 01 Clinical history: . ABDOMINAL PAIN, SEPSIS . 02 Diagnosis: Appendix, appendectomy: - Mild focal acute inflammation. (IUV/db; 05/03/2020) LBQ 05/03/2020 1456 Local . 02 Electronically signed: . Madhavi Resendez MD, Pathologist NPI- [id number] . 01 Gross description: . The specimen is received in formalin, labeled "Elise Guajardo, appendix". Received is a vermiform appendix measuring 8.3 cm in length by up to 0.6 cm in diameter with a small amount of attached mesoappendix. The serosal surface is pale carney and smooth in appearance. The surgical margin is closed with a line of darling. The darling are removed and the new margin is inked black. Sectioning reveals a patent lumen filled with fecal material. The specimen is submitted representatively in cassettes A1 and A2, with the proximal margin and bisected tip submitted in cassette A1. (CAA; 05/02/2020) QAC/QAC 05/02/2020 1402 Local . 02 Pathologist provided ICD-10: K35.80 . 02 CPT . 686391 Specimen Comment: A courtesy copy of this report has been sent to [phone], [phone] Specimen Comment: [phone] Specimen Comment: Report sent to ,DR CHRISTENSEN / DR PARKS Performed at: [address] [id number] MD Mina Cleary MD Phone: [phone] Performed at: [address] [address] PATHOLOGY RPT PROCEDURE Name: ELISE GUAJARDO Room #: 208-P DIS IN M.R.#: [id number] Admission: 04/28/20 Date of : 98 Discharge: 04/30/20 Report #: [id number] Path Case #: [id number] [address] [facility], [place], [place] [id number] MD Madhavi Resendez MD Phone: [phone]
== END 2020-04-30 15:34 | disposition home or self-care (01) | DRG 341 ==
LOC: ER 23:33 → 2N 04-28 03:28 → EROBS 04-28 03:28 → 4W 04-28 16:40 → 4S 04-29 13:34 → 2N 04-29 16:43
PROVIDERS: Emergency Medicine; Nurse Practitioner Family; Surgery; ADMIT Surgery; ATTEND Surgery
PROC: 0DTJ4ZZ Resection of Appendix, Percutaneous Endoscopic Approach (ICD-10-PCS; principal; 2020-04-29)
DX: K35.890 Other acute appendicitis without perforation or gangrene (principal); R65.11 Systemic inflammatory response syndrome (SIRS) of non-infectious origin with acute organ dysfunction; E43 Unspecified severe protein-calorie malnutrition; N17.0 Acute kidney failure with tubular necrosis; D62 Acute posthemorrhagic anemia; G43.909 Migraine, unspecified, not intractable, without status migrainosus; F32.9 Major depressive disorder, single episode, unspecified; I12.9 Hypertensive chronic kidney disease with stage 1 through stage 4 chronic kidney disease, or unspecified chronic kidney disease; N18.30 Chronic kidney disease, stage 3 unspecified; E10.22 Type 1 diabetes mellitus with diabetic chronic kidney disease; E10.65 Type 1 diabetes mellitus with hyperglycemia; F41.9 Anxiety disorder, unspecified; Z20.822 Contact with and (suspected) exposure to COVID-19; Z79.4 Long term (current) use of insulin; Z79.899 Other long term (current) drug therapy; Z88.0 Allergy status to penicillin
CPT/HCPCS: 10040; 10081; 50010; 50101; 50411; 50555; 50558; 50739; 50740; 52265; 52266; 53307; 53310; 53312; 54022; 54118; 56525; 56526; 62110; 62900; 70005

== ENCOUNTER 2020-06-12 00:50 | Emergency (ER) | payer OTHER ==
[~2020-06-12] VITALS: Ht 152.4 cm; Wt 56.7 kg
[~2020-06-12 00:50] MED LIST changes: +CLONIDINE HCL0.1 MG PO; +OXYCODONE HCL 55 MG PO
[2020-06-12 01:24] LABS: URINE BILIRUBIN NEGATIVE (Negative); URINE BLOOD 1+ (Negative); URINE CLARITY CLEAR; URINE COLOR YELLOW; URINE GLUCOSE-RANDOM* 3+ (Negative); URINE KETONES NEGATIVE (Negative); URINE LEUKOCYTES-REFLEX NEGATIVE (Negative); URINE NITRITE-REFLEX NEGATIVE (Negative); URINE PROTEIN (DIPSTICK) 2+ (Negative); URINE SPECIFIC GRAVITY 1.025 (1.005-1.035); URINE UROBILINOGEN 0.2 E.U./dl (0.2-1.0)
[2020-06-12 01:26] LABS: HEMATOCRIT 27.9 % (37.0-47.0); HEMOGLOBIN 9.1 gm/dL (12.0-15.0); MCH 28.2 pg (26.0-34.0); MCHC 32.7 g/dL (28.0-37.0); MCV 86.3 fL (80.0-100.0); PLATELET COUNT 503 thou/uL (150-400); RBC 3.23 mil/uL (4.20-5.00); RDW 15.3 % (10.5-14.5); WBC 7.6 thou/uL (4.0-11.0)
[2020-06-12 01:34] LABS: CALCIUM 8.8 mg/dL (8.5-10.1); CREATININE 1.1 mg/dL (0.6-1.0)
[2020-06-12 01:34] LABS: BE(vivo) 3.8 mmol/L (-2 to +3); HCO3 29.5 mmol/L (22.0-26.0); PCO2 49.9 mmHg (35.0-45.0); PO2 74.9 mmHg (80.0-100.0); pH 7.389 (7.360-7.450); sO2 94.7 % (92.0-98.0)
[2020-06-12 01:35] LABS: APTT 27.8 Seconds (24.5-32.8)
[2020-06-12 01:37] LABS: INR < 1.0
[2020-06-12 01:40] LABS: ALBUMIN 2.2 g/dL (3.4-5.0); TOTAL BILIRUBIN 0.1 mg/dL (0.2-1.0); TOTAL PROTEIN 7.4 g/dL (6.4-8.2)
[2020-06-12 01:40] LABS: BARBITURATES Negative (Negative); BENZODIAZEPINES Negative (Negative); COCAINE Negative (Negative); METHADONE Negative (Negative); OPIATES Negative (Negative); PCP Negative (Negative)
[2020-06-12 01:41] LABS: AMP/METHAMP Negative (Negative)
[2020-06-12 01:51] LABS: BACTERIA-REFLEX None Seen /HPF (None Seen); CASTS None Seen /LPF (None Seen); CRYSTALS None Seen /LPF (None Seen); MUCUS 0-3 Light strn/LPF (None Seen); SQUAMOUS >10 Many /LPF (0-3); TRANSITIONAL EPITHEL CELL 0-3 Few /LPF (None Seen); URINE RBC 3-10 Few /HPF (0-2); URINE WBC-REFLEX 6-15 Few /HPF (0-5)
[2020-06-12 01:56] LABS: ABSOLUTE NEUTROPHILS 3.8 thou/uL (1.4-8.2)
[2020-06-12] MEDS ORDERED: BENTYL 10 MG CA10 M1 PO (03:45)
[2020-06-12] MEDS ORDERED: ZOFRAN ODT4 MG PO (03:45)
[2020-06-12 04:18] VITALS: BP 138/86
--- NOTE | 2020-06-13 07:38 | EKG ---
[address] [address] ELECTROCARDIOGRAM REPORT Name: JONATHANNEEL Knutson [id number] Admission: 06/12/20 Attend Phys: Discharge: 06/12/20 Date of : 98 Report #: [id number] [facility] ED Test Date: 2020-06-12 Test Time: 01:21:20 Pat Name: NEEL CASTILLO Department: Room: Gender: F Contractor Field Hauling: sofiya : 2000 Requested By: Zane Priest Order Number: [id number] MD: Edward Hurst Measurements Intervals [place] Rate: 120 P: 65 HI: 146 QRS: 43 QRSD: 84 T: 40 QT: 317 QTc: 448 Interpretive Statements Sinus tachycardia Compared to ECG 04/27/2020 23:47:00 No significant changes Electronically Signed On 06-13-2020 7:38:20 CRM CONSULTANT by Edward Hurst [email or web address] <ELECTRONICALLY SIGNED> By: Edward Hurst MD, [facility] 06/13/20 0738 0 0121 Edward Hurst MD, FACC /EPI
== END 2020-06-12 04:10 | disposition home or self-care (01) ==
LOC: ER 00:50
PROVIDERS: Emergency Medicine
DX: R10.9 Unspecified abdominal pain (principal); F15.10 Other stimulant abuse, uncomplicated; E10.65 Type 1 diabetes mellitus with hyperglycemia; I10 Essential (primary) hypertension; Z79.899 Other long term (current) drug therapy; Z79.4 Long term (current) use of insulin; Z88.0 Allergy status to penicillin

== ENCOUNTER 2020-09-16 03:40 | Inpatient (IN) | payer OTHER ==
[2020-09-16] VITALS (36 sets, daily range): BP systolic 126–166; BP diastolic 74–113
[~2020-09-16] VITALS: Ht 162.6 cm; Wt 73.0 kg
[~2020-09-16 03:40] MED LIST changes: +BENTYL 10 MG CA10 M1 PO; +ZOFRAN ODT4 MG PO
[2020-09-16 04:16] LABS: BE(vivo) -2.3 mmol/L (-2 to +3); HCO3 22.3 mmol/L (22.0-26.0); PCO2 37.4 mmHg (35.0-45.0); PO2 90.1 mmHg (80.0-100.0); pH 7.394 (7.360-7.450); sO2 96.9 % (92.0-98.0)
[2020-09-16 04:33] LABS: ABSOLUTE NEUTROPHILS 5.2 thou/uL (1.4-8.2); BASOPHILS 0.3 % (0.0-2.0); EOSINOPHILS 0.9 % (0.0-3.0); HEMATOCRIT 26.7 % (37.0-47.0); HEMOGLOBIN 8.6 gm/dL (12.0-15.0); LYMPHOCYTES 29.1 % (24.0-44.0); MCH 28.6 pg (26.0-34.0); MCHC 32.2 g/dL (28.0-37.0); MCV 88.7 fL (80.0-100.0); MONOCYTES 10.4 % (1.0-8.0); PLATELET COUNT 643 thou/uL (150-400); POLYS 59.3 % (36.0-66.0); RBC 3.01 mil/uL (4.20-5.00); RDW 15.8 % (10.5-14.5); WBC 8.8 thou/uL (4.0-11.0)
[2020-09-16 04:46] LABS: ALBUMIN 2.2 g/dL (3.4-5.0); CALCIUM 7.5 mg/dL (8.5-10.1); CREATININE 1.7 mg/dL (0.6-1.0); TOTAL BILIRUBIN 0.2 mg/dL (0.2-1.0); TOTAL PROTEIN 6.8 g/dL (6.4-8.2)
--- NOTE | 2020-09-16 05:09 | NUR ---
Called [facility] at this time for medical records. Will send release of information.
[2020-09-16 05:37] LABS: URINE BILIRUBIN NEGATIVE (Negative); URINE BLOOD TRACE (Negative); URINE CLARITY CLEAR; URINE COLOR YELLOW; URINE GLUCOSE-RANDOM* 3+ (Negative); URINE KETONES NEGATIVE (Negative); URINE LEUKOCYTES-REFLEX NEGATIVE (Negative); URINE NITRITE-REFLEX NEGATIVE (Negative); URINE PROTEIN (DIPSTICK) 1+ (Negative); URINE SPECIFIC GRAVITY <= 1.005 (1.005-1.035); URINE UROBILINOGEN 0.2 E.U./dl (0.2-1.0)
[2020-09-16 05:48] LABS: CASTS None Seen /LPF (None Seen); MUCUS 0-3 Light strn/LPF (None Seen); SQUAMOUS >10 Many /LPF (0-3)
[2020-09-16 05:49] LABS: BACTERIA-REFLEX 1-9 Few /HPF (None Seen); CRYSTALS None Seen /LPF (None Seen); URINE RBC 1-2 Rare /HPF (NONE SEEN); URINE WBC-REFLEX 6-15 Few /HPF (0-5)
[2020-09-16 08:41] LABS: CALCIUM 7.3 mg/dL (8.5-10.1); CREATININE 1.3 mg/dL (0.6-1.0); POTASSIUM 4.3 mmol/L (3.5-5.1)
[2020-09-16] MEDS ORDERED: CARVEDILOL ER10 MG PO (09:56)
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
[2020-09-16 18:58] LABS: CALCIUM 7.7 mg/dL (8.5-10.1); CREATININE 0.9 mg/dL (0.6-1.0); MAGNESIUM 1.8 mg/dL (1.8-2.4); PHOSPHORUS 3.1 mg/dL (2.5-4.9); POTASSIUM 3.8 mmol/L (3.5-5.1)
[2020-09-16 23:29] LABS: CALCIUM 7.6 mg/dL (8.5-10.1); MAGNESIUM 1.6 mg/dL (1.8-2.4); PHOSPHORUS 2.5 mg/dL (2.5-4.9); POTASSIUM 3.9 mmol/L (3.5-5.1)
[2020-09-17] VITALS (26 sets, daily range): BP systolic 107–188; BP diastolic 64–135
[2020-09-17 04:02] LABS: HEMATOCRIT 24.5 % (37.0-47.0); HEMOGLOBIN 8.1 gm/dL (12.0-15.0); MCH 28.2 pg (26.0-34.0); MCHC 33.1 g/dL (28.0-37.0); MCV 85.1 fL (80.0-100.0); RBC 2.87 mil/uL (4.20-5.00); RDW 15.9 % (10.5-14.5); WBC 13.1 thou/uL (4.0-11.0)
[2020-09-17 04:12] LABS: CREATININE 0.9 mg/dL (0.6-1.0); MAGNESIUM 1.9 mg/dL (1.8-2.4); PHOSPHORUS 2.8 mg/dL (2.5-4.9); POTASSIUM 3.6 mmol/L (3.5-5.1)
[2020-09-17 04:27] LABS: CALCIUM 7.9 mg/dL (8.5-10.1)
--- NOTE | 2020-09-17 06:04 | NUR ---
ASSUMED CARE AT 1900. INSULIN GTT ON FOR ABOUT 6 HOURS OVERNIGHT; DISCUSSED BLOOD SUGARS W/PHARMACIST; PT VERY SENSITIVE TO GTT AND D5. HAVING INTERMIT CHILLS AND SWEATS WITHOUT FEVER. PT REPORTS HIGH LEVEL OF PAIN IN RIGHT CHEST/SHOULDER, DESPITE GIVING REGULAR DOSES OF PAIN MEDS. ELEVATED BP THIS MORNING. SPOKE TO DR. CHRISTENSEN ABOUT 0630, OBTAINED ORDERS TO START MODERATE SLIDING SCALE, ONE TIME DOSE 20 UNITS LANTUS, AND HE WOULD ADDRESS BP WHEN HE GETS HERE THIS AM. NO OTHER CONCERNS, WILL CONTINUE TO MONITOR.
[2020-09-17 07:29] LABS: CREATININE 0.9 mg/dL (0.6-1.0); MAGNESIUM 1.9 mg/dL (1.8-2.4); PHOSPHORUS 3.1 mg/dL (2.6-4.7); POTASSIUM 3.9 mmol/L (3.5-5.1)
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
[2020-09-18] VITALS (14 sets, daily range): BP systolic 115–160; BP diastolic 69–113
[2020-09-18 04:17] LABS: HEMATOCRIT 25.4 % (37.0-47.0); HEMOGLOBIN 8.3 gm/dL (12.0-15.0); MCH 28.3 pg (26.0-34.0); MCHC 32.8 g/dL (28.0-37.0); MCV 86.2 fL (80.0-100.0); RBC 2.94 mil/uL (4.20-5.00); RDW 16.3 % (10.5-14.5)
[2020-09-18 04:38] LABS: ALBUMIN 1.8 g/dL (3.4-5.0); ANION GAP 9 mmol/L (7-16); BUN 16 mg/dL (7-18); CHLORIDE 104 mmol/L (98-107); CO2 24 mmol/L (21-32); CREATININE 1.2 mg/dL (0.6-1.0); GLUCOSE 264 mg/dL (74-106); POTASSIUM 4.8 mmol/L (3.5-5.1); SGOT 32 U/L (15-37); SGPT 20 U/L (14-59); SODIUM 137 mmol/L (136-145); TOTAL BILIRUBIN < 0.1 mg/dL (0.2-1.0); TOTAL PROTEIN 5.9 g/dL (6.4-8.2)
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
--- NOTE | 2020-09-18 11:07 | NUR ---
ASSUMED PATIENT CARE AT 0700. PATIENT HYPOGLYCEMIC, JUICE AND CRACKERS GIVEN. BG CHECKS AND SNACKS REPEATED TILL BG > 70. PATIENT COMPLAINING OF PAIN, PRN MEDS GIVEN. DR. CHRISTENSEN AT BEDSIDE, NEW ORDER FOR PAIN MEDS GIVEN. DR. CHRISTENSEN NOTIFIED THAT DR. MENESES IS ON VACATION AND UNABLE TO ACCEPT CONSULT. ORDER PLACED FOR CT OF CHEST. PATIENT TRANSPORTED TO CT AT 0920, ARRIVED BACK TO ICU AT 0937. DR. CHRISTENSEN CALLED AND UPDATED WITH CT RESULTS, TXFER ORDER. WOUND CARE COMPLETED PER ORDERS AND DRESSING CHANGED. MOTHER, MARLENI, CALLED AND UPDATED AT 1010. WILL CONTINUE TO MONITOR.
--- NOTE | 2020-09-18 17:50 | NUR ---
PT ADMITTED TO ROOM AT THIS TIME. SHE IIS ALERT ORIENTED X4. [facility] C[facility]. RESPIRATIONS ARE NON LABORED. WILL CONT WITH PLAN OF CARE.
[2020-09-19 01:31] LABS: HEMATOCRIT 27.3 % (37.0-47.0); HEMOGLOBIN 8.8 gm/dL (12.0-15.0); MCH 28.4 pg (26.0-34.0); MCHC 32.3 g/dL (28.0-37.0); MCV 87.9 fL (80.0-100.0); RBC 3.11 mil/uL (4.20-5.00); RDW 16.7 % (10.5-14.5); WBC 7.4 thou/uL (4.0-11.0)
[2020-09-19 01:40] LABS: CALCIUM 8.3 mg/dL (8.5-10.1); CREATININE 1.1 mg/dL (0.6-1.0); POTASSIUM 4.5 mmol/L (3.5-5.1)
[2020-09-19 04:01] VITALS: BP 135/94
--- NOTE | 2020-09-19 06:13 | NUR ---
ASSUMED CARE OF PT AT 0000 TONIGHT.PT PROGRESSING TOWARDS D/C GOALS. VSS AFEBRILE. BS LOW TONIGHT LOW 39 AND EVENTUALLY BACK UP TO 127 THIS AM AT [address] CHRISTENSEN NOTIFIED. LANTUS DISCONTINUED. JESSE ORDERED IV FOR NAUSEA SINCE PT FELT LIKE PO DID NOT WORK VERY WELL. C/O RIGHT SHOULDER PAIN. MEDICATED WITH OXYCODONE. SHE IS PRESENTLY. BACK TO SLEEP. NO S/S DISRESS.
[2020-09-19 07:12] VITALS: BP 158/114
[2020-09-19 15:15] VITALS: BP 119/76
[2020-09-19 18:57] VITALS: BP 127/63
--- NOTE | 2020-09-20 | NUR ---
AT 2100 BLOOD SUGAR WAS 318. GAVE PT 9 UNITS ACCORDING TO SLIDING SCALE. SPOT RECHECK ON BS AT 2345 AND BS WAS 36. GAVE PT 7 GLUCOSE TABS, 2 ORANGE JUICES AND A SANDWICH TRAY. WILL RECHECK PER PROTOCOL. ALL APPROPRIATE PARTIES NOTIFIED.
[2020-09-20 03:50] VITALS: BP 99/62
[2020-09-20 07:32] VITALS: BP 141/94
--- NOTE | 2020-09-20 13:05 | 2DMMODE ---
[facility] [place] [address] 2 D/M-MODE ECHOCARDIOGRAM Name: NEEL CASTILLO Eamon Room #: 350-P ADM IN M.R.#: [id number] Admission: 09/16/20 Attend Phys: Cristino Whitley MD Discharge: Date of : 98 Report #: [id number] THIS REPORT FOR: cc: Cristino Whitley MD, Neal A. MD Santiago, Patrick MD [facility] ~ APPROVED REPORT Study performed: 09/20/2020 12:20:11 EXAM: Comprehensive 2D, Doppler, and color-flow Echocardiogram Patient Location: Bedside Room #: 350 Status: routine BSA: 1.78 HR: 115 bpm BP: 141/91 mmHg Rhythm: Tachycardia Other Information Study Quality: Excellent Indications History of cardiomyopathy, HTN, DM. 2D Dimensions RVDd: 31.11 mm IVSd: 12.87 (7-11mm) LVOT Diam: 19.04 (18-24mm) LVDd: 38.12 mm PWd: 12.07 (7-11mm) Ascending Ao: 29.68 (22-36mm) LVDs: 25.81 (25-40mm) Left Atrium: 32.34 (27-40mm) Aortic Root: 25.08 mm Volumes Left Atrial Volume (Systole) Single Plane 4CH: 39.58 mL Single Plane 2CH: 27.43 mL LA ESV Index: 20.00 mL/m2 Aortic Valve AoV Peak Mario.: 1.57 m/s AO Peak Gr.: 9.83 mmHg LVOT Max P.58 mmHg LVOT Max V: 1.07 m/s USMAN Vmax: 1.94 cm2 [facility] [address] [place] [address] 2 D/M-MODE ECHOCARDIOGRAM Name: CASTILLONEEL Room #: 350-[facility] IN [facility]#: [id number] Admission: 09/16/20 Attend Phys: Cristino Whitley, Discharge: Date of : 98 Report #: [id number] Mitral Valve E/A Ratio: 1.1 MV Decel. Time: 92.43 ms MV E Max Mario.: 0.75 m/s MV A Mario.: 0.67 m/s MV PHT: 26.81 ms IVRT: 64.59 ms Pulmonary Valve PV Peak Mario.: 1.30 m/s PV Peak Gr.: 6.77 mmHg Pulmonary Vein P Vein S: 0.45 m/s P Vein D: 0.32 m/s P Vein S/D Ratio: 1.41 Tricuspid Valve TR Peak Mario.: 2.32 m/s RAP Estimate: 5.00 mmHg TR Peak Gr.: 22.00 mmHg PA Pressure: 27.00 mmHg Left Ventricle The left ventricle is normal size. There is normal LV segmental wall motion. Mild concentric left ventricular hypertrophy. Left ventricular systolic function is normal. LVEF is 60-65%. The left ventricular diastolic function is normal. Right Ventricle The right ventricle is normal size. The right ventricular systolic function is normal. Atria The left atrium size is normal. The right atrium size is normal. Aortic Valve The aortic valve is normal in structure. Trace aortic regurgitation. There is no aortic valvular stenosis. Mitral Valve The mitral valve is normal in structure. Trace mitral regurgitation. No evidence of mitral valve stenosis. Tricuspid Valve The tricuspid valve is normal in structure. Mild tricuspid [facility] [address] [place] [address] 2 D/M-MODE ECHOCARDIOGRAM Name: NEEL CASTILLO Room #: 350-P [facility] IN .R.#: [id number] Admission: 09/16/20 Attend Phys: Cristino Whitley, Discharge: Date of : 98 Report #: [id number] regurgitation. Estimated PAP is 27mmHg. Pulmonic Valve The pulmonary valve is normal in structure. Trace pulmonic regurgitation. Great Vessels The aortic root is normal in size. The ascending aorta is normal in size. IVC is normal in size and collapses >50% with inspiration. Pericardium There is no pericardial effusion. <Conclusion> Normal left ventricular size with mild concentric hypertrophy Ejection fraction 60% Normal right ventricle size/function Normal atrial size Color-flow Doppler study was performed of the aortic/mitral/tricuspid/pulmonary valve Normal aortic/mitral valve structure Trace aortic/mitral valve insufficiency Mild tricuspid valve insufficiency Pulmonary systolic pressure estimated 27 mmHg Normal aortic root size No pericardial effusion <ELECTRONICALLY SIGNED> By: Edward Hurst MD, FACC 09/20/201304 04 04 Edward Hurst MD, FACC /INF
--- NOTE | 2020-09-20 13:11 | NUR ---
PT MOTHER VISITED EARLIER THIS SHIFT. PT STATES POST VISIT, PT MOTHER MAKES HER VERY ANXIOUS AND UNSETTLED. PT REQUESTED ANXIETY MEDICATION EARLY TO HELP. MEDICATION WAS EFFECTIVE.
[2020-09-20 16:12] VITALS: BP 141/97
[2020-09-20 19:10] VITALS: BP 138/96
[2020-09-21] VITALS (7 sets, daily range): BP systolic 139–151; BP diastolic 93–101
--- NOTE | 2020-09-21 05:57 | NUR ---
POC IS FOR PAIN MANAGEMENT. BLOOD SUGARS MORE STABLE THIS EVENING, BUT ELEVATED. 358 AT 2100 AND GAVE JUST 6 UNITS. SPOT CHECK AT 0445 BS WAS 404. HR ELEVATED. WONDERING IF PT IS VAPING IN ROOM. SPOTTED A DEVICE THAT COULD BE. THIS WOULD ATTRIBUTE TO HIGHER HR. WILL DISCUSS WITH THIS AM. ONLY COMPLAINT OVERNIGHT WAS ITCHING. GAVE IV BENADRYL X2 WITH GOOD SUCCESS.
[2020-09-21] MEDS ORDERED: CLARITIN10 M2 PO (07:44)
[2020-09-21] MEDS ORDERED: CLOPIDOGREL75 MG PO (07:45)
[2020-09-21] MEDS ORDERED: NORVASC5 MG PO (07:46)
[2020-09-21] MEDS ORDERED: OXYCODONE HCL 55 MG PO (07:46)
[2020-09-21] MEDS ORDERED: NEURONTIN 300M300 M2 PO (07:47)
[2020-09-21] MEDS ORDERED: XARELTO15 MG PO (07:47)
[2020-09-21] MEDS ORDERED: ONDANSETRON HCL4 M3 DISSOLVE (07:48)
[2020-09-21] MEDS ORDERED: CEFDINIR300 MG PO (07:54)
[2020-09-21 08:37] LABS: HEMATOCRIT 22.9 % (37.0-47.0); HEMOGLOBIN 7.5 gm/dL (12.0-15.0); MCH 27.8 pg (26.0-34.0); MCHC 32.6 g/dL (28.0-37.0); MCV 85.2 fL (80.0-100.0); RBC 2.68 mil/uL (4.20-5.00); RDW 15.9 % (10.5-14.5); WBC 13.6 thou/uL (4.0-11.0)
[2020-09-21 08:59] LABS: CALCIUM 8.6 mg/dL (8.5-10.1); CREATININE 1.4 mg/dL (0.6-1.0); TOTAL BILIRUBIN 0.1 mg/dL (0.2-1.0); TOTAL PROTEIN 6.6 g/dL (6.4-8.2)
[2020-09-21 09:01] LABS: POTASSIUM 6.2 mmol/L (3.5-5.1)
--- NOTE | 2020-09-21 09:02 | NUR ---
DR CHRISTENSEN INFORMED OF POTASSIUM 6.2
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
[2020-09-22 04:21] VITALS: BP 161/111
[2020-09-22 05:29] LABS: HEMATOCRIT 22.5 % (37.0-47.0); HEMOGLOBIN 7.3 gm/dL (12.0-15.0); MCH 28.2 pg (26.0-34.0); MCHC 32.4 g/dL (28.0-37.0); MCV 86.9 fL (80.0-100.0); RBC 2.59 mil/uL (4.20-5.00); RDW 16.3 % (10.5-14.5); WBC 10.9 thou/uL (4.0-11.0)
--- NOTE | 2020-09-22 05:59 | NUR ---
POC WITH IVF GTT AT 150. PT STATED IV ACCESS WAS HURTING AT 0400. RE-ESTABLISHED ACCESS IN LEFT HAND. RECEIVED RX LARGER DOSE OF BENADRYL PT STATES SHE IS CONTINUING TO HAVE ITCHING ISSUES. BLOOD SUGARS WERE LESS VOLATILE. 224 AT 2100 AND 484 AT 0300. DOSED ACCORDINGLY. AWAITING BMP RESULTS THIS AM K+ WAS ELEVATED ON 09/21. HOURLY ROUNDING.
[2020-09-22 06:12] LABS: CALCIUM 8.3 mg/dL (8.5-10.1); CREATININE 1.2 mg/dL (0.6-1.0)
[2020-09-22 07:21] VITALS: BP 140/87
[2020-09-22 08:43] LABS: % SATURATION 9 % (20-39); IRON 22 ug/dL (50-170); TIBC 255 ug/dL (250-450)
--- NOTE | 2020-09-22 10:33 | NUR ---
RD visited pt d/t LOS-day 6. Pt reports possible d/c this afternoon. Appetite fluctuates, dx IDDM, on insulin. Pt reports UBW 130# and contributes her current weight of 161# to fluid and stress from recent surgery. Noted with BS >500 at times, A1c in April 2020 was 16.5. Pt declines additional nutrition eduation r/t DM at this time stating that an educator will be coming to her house after d/c r/t possible insulin pump. Noted with visual edema to R hand. RD available for nutrition education as needed. Low nutrition risk.
[2020-09-22 14:11] LABS: CALCIUM 9.1 mg/dL (8.5-10.1); CREATININE 1.2 mg/dL (0.6-1.0)
[2020-09-22 14:12] LABS: POTASSIUM 4.4 mmol/L (3.5-5.1)
[2020-09-22] MEDS ORDERED: OXYCODONE HCL 55 MG PO (15:36)
[2020-09-22 15:58] VITALS: BP 139/98
--- NOTE | 2020-09-22 16:13 | NUR ---
Pt dcing home this evening. Girma will be out to see her Saturday. DC orders faxed to intake and confirmed with the liason. Pt to fill scripts at her [facility] pharmacy however should she not be able to afford any of the copays she can contact cm in the am to assist through the [facility](currently closed). Dressing supplies to be sent home with the pt. Outpt OT script to be sent also once she is dc'd from . Pt to dc after dinner this evening.
[2020-09-22 16:15] VITALS: BP 139/98
[2020-09-22 17:37] VITALS: BP 139/98
== END 2020-09-22 18:36 | disposition home health service (06) | DRG 175 ==
LOC: ER 03:40 → 3W 05:59 → ICU 05:59 → EROBS 05:59 → ICU 08:04 → 3W 09-18 15:06
PROVIDERS: Emergency Medicine; Nurse Practitioner; ADMIT Family Medicine; ATTEND Family Medicine
DX: I26.99 Other pulmonary embolism without acute cor pulmonale (principal); E43 Unspecified severe protein-calorie malnutrition; N17.0 Acute kidney failure with tubular necrosis; E87.1 Hypo-osmolality and hyponatremia; S21.101A Unspecified open wound of right front wall of thorax without penetration into thoracic cavity, initial encounter; I42.9 Cardiomyopathy, unspecified; R65.10 Systemic inflammatory response syndrome (SIRS) of non-infectious origin without acute organ dysfunction; E11.65 Type 2 diabetes mellitus with hyperglycemia; E87.5 Hyperkalemia; F41.9 Anxiety disorder, unspecified; F32.9 Major depressive disorder, single episode, unspecified; I10 Essential (primary) hypertension; D64.9 Anemia, unspecified; G83.21 Monoplegia of upper limb affecting right dominant side; S41.031A Puncture wound without foreign body of right shoulder, initial encounter; L50.9 Urticaria, unspecified; Z88.6 Allergy status to analgesic agent; Z88.8 Allergy status to other drugs, medicaments and biological substances; Z88.0 Allergy status to penicillin; Z90.49 Acquired absence of other specified parts of digestive tract; Z79.4 Long term (current) use of insulin; Z68.27 Body mass index [BMI] 27.0-27.9, adult; Y93.89 Activity, other specified; Y92.89 Other specified places as the place of occurrence of the external cause; Y99.8 Other external cause status; X58.XXXA Exposure to other specified factors, initial encounter
CPT/HCPCS: 10078; 10779; 10879

== ENCOUNTER 2020-09-26 12:55 | Inpatient (IN) | payer OTHER ==
[~2020-09-26] VITALS: Ht 162.6 cm; Wt 72.9 kg
[~2020-09-26 12:55] MED LIST changes: +CARVEDILOL ER10 MG PO; +CEFDINIR300 MG PO; +CLARITIN10 M2 PO; +CLOPIDOGREL75 MG PO; +NEURONTIN 300M300 M2 PO; +NORVASC5 MG PO; +ONDANSETRON HCL4 M3 DISSOLVE; +XARELTO15 MG PO
[2020-09-26 13:30] VITALS: BP 163/106
[2020-09-26 14:31] LABS: URINE BILIRUBIN NEGATIVE (Negative); URINE BLOOD 1+ (Negative); URINE CLARITY CLEAR; URINE GLUCOSE-RANDOM* 3+ (Negative); URINE KETONES 1+ (Negative); URINE LEUKOCYTES-REFLEX NEGATIVE (Negative); URINE NITRITE-REFLEX NEGATIVE (Negative); URINE PROTEIN (DIPSTICK) 1+ (Negative); URINE UROBILINOGEN 0.2 E.U./dl (0.2-1.0)
--- NOTE | 2020-09-26 14:37 | EKG ---
[address] [place] [address] ELECTROCARDIOGRAM REPORT Name: JONATHANNEEL Room #: [facility].#: [id number] Admission: Attend Phys: Discharge: Date of : 89 Report #: [id number] [facility] ED Test Date: 2020-09-26 Test Time: 13:01:26 Pat Name: NEEL CASTILLO Department: Room: Gender: Broach Grinder: : 2000 Requested By: Zane Priest Order Number: [id number] MD: Edward Hurst Measurements Intervals Gail Rate: 104 P: 69 [place]: 144 QRS: 32 QRSD: 82 T: 45 QT: 322 QTc: 424 Interpretive Statements Sinus tachycardia Probable left atrial enlargement Baseline wander in lead(s) V4 Compared to ECG 06/12/2020 01:21:20 No significant changes Electronically Signed On 09-26-2020 14:37:06 CDT by Edward Hurst [email or web address] <ELECTRONICALLY SIGNED> By: Edward Hurst MD, [facility] 09/26/20 1437 1301 1301 Edward Hurst MD, FACC /EPI
[2020-09-26 14:42] LABS: SQUAMOUS 0-3 Few /LPF (0-3); URINE COLOR STRAW; URINE RBC 3-10 Few /HPF (NONE SEEN)
[2020-09-26 14:43] LABS: BACTERIA-REFLEX None Seen /HPF (None Seen); CASTS None Seen /LPF (None Seen); CRYSTALS None Seen /LPF (None Seen); URINE WBC-REFLEX 0-5 Rare /HPF (0-5)
[2020-09-26 14:57] LABS: ABSOLUTE NEUTROPHILS 5.8 thou/uL (1.4-8.2); BASOPHILS 0.1 % (0.0-2.0); EOSINOPHILS 0.8 % (0.0-3.0); HEMATOCRIT 27.5 % (37.0-47.0); HEMOGLOBIN 8.1 gm/dL (12.0-15.0); LYMPHOCYTES 19.9 % (24.0-44.0); MCH 27.9 pg (26.0-34.0); MCHC 29.6 g/dL (28.0-37.0); MCV 94.4 fL (80.0-100.0); MONOCYTES 5.8 % (1.0-8.0); PLATELET COUNT 492 thou/uL (150-400); POLYS 73.4 % (36.0-66.0); RBC 2.91 mil/uL (4.20-5.00); RDW 16.9 % (10.5-14.5)
[2020-09-26 15:06] LABS: ANION GAP 12 mmol/L (7-16); BUN 26 mg/dL (7-18); CALCIUM 8.3 mg/dL (8.5-10.1); CHLORIDE 84 mmol/L (98-107); CO2 24 mmol/L (21-32); CREATININE 1.6 mg/dL (0.6-1.0); POTASSIUM 5.6 mmol/L (3.5-5.1); SODIUM 120 mmol/L (136-145)
[2020-09-26 15:08] LABS: APTT 34.5 Seconds (24.5-32.8); INR 1.1; PROTIME 11.9 Seconds (10.5-12.1)
[2020-09-26 15:13] LABS: ALBUMIN 2.2 g/dL (3.4-5.0); LIPASE 254 U/L (73-393); SGOT 44 U/L (15-37); SGPT 50 U/L (14-59); TOTAL BILIRUBIN 0.2 mg/dL (0.2-1.0); TOTAL PROTEIN 7.5 g/dL (6.4-8.2); TROPONIN-I <0.06 ng/mL (<0.06)
[2020-09-26 15:23] LABS: GLUCOSE 1361 mg/dL (74-106)
[2020-09-26 18:30] VITALS: BP 123/67
[2020-09-26 19:00] VITALS: BP 148/95
[2020-09-26 20:00] VITALS: BP 131/90
[2020-09-26 21:00] VITALS: BP 120/77
[2020-09-26 22:00] VITALS: BP 126/81
[2020-09-27] VITALS (16 sets, daily range): BP systolic 140–187; BP diastolic 84–114
--- NOTE | 2020-09-27 00:07 | NUR ---
RN TO BEDSIDE AT APPROX 2200 TP FIND PATIENT LEANING OVER AND CRYING IN PAIN. THIS RN ASSISTED PATIENT TO CHAIR, ICE PACKS GIVEN. PATIENT RESTING COMFORTBALY. RN BACK TO BEDSIDE AFTER HEARING LOUD CRIES FROM PATIENT AT APPROX 2250. PATIENT SETTLED WITH THERAPEUTIC CONVERSATION AND THIS RN CALLED PHARMACY TO CLARIFY MEDICATIONS. NEW ORDERS RECEIVED. AT APPROX 2350 RN TO BEDSIDE TO GIVE GABAPENTIN. PATIENT WAS LEANING OVER AND CRYING IN PAIN. RN GAVE GABAPENTIN AND ZOFRAN. RN REPOSITIONED PATIENT AND APPLIED HEATED BLANKET OVER PATIENTS SHOULDERS FOR NONPHARM PAIN CONTROL. PATIENT CLOSED EYES AND RESTED COMFORTABLY.
[2020-09-27 08:33] LABS: CALCIUM 8.8 mg/dL (8.5-10.1); CREATININE 0.9 mg/dL (0.6-1.0)
[2020-09-27 08:37] LABS: POTASSIUM 3.8 mmol/L (3.5-5.1)
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
--- NOTE | 2020-09-27 22:00 | NUR ---
ASSUMED CARE OF PT FROM ICU ROOM 441 , DISCUSSED PLAN OF CARE , PT VOICED UNDERSTANDING AND AGREEABLE , PT REQUESTING PAIN MEDICATION. MOTHER CALLED VERY UPSET THAT SHE WAS NOT NOTIFIEF THAT IDALIA WAS BEING TRANSFERRED TO UNIT. EXPLIANED TO MOTHER THAT PT WAS STABLE AND OFF THE INSULIN GTT THERE FORE AHE WAS READY TO BE TRANFERRED . MOTHER ALSO DEMANDED TO TALK TO DR BORDEN. MESSAGE RELAYED TO MD. BLOOD GLUCODE 135 AFTER PT ATE SALAD. BED ALARM FOR SAFETY ,YELLOW SLIPPER ON WITH ARM BAND . DISCUSS FALL RISK.
[2020-09-28 01:24] VITALS: BP 155/75
[2020-09-28 04:52] VITALS: BP 158/101
[2020-09-28 05:52] LABS: HEMATOCRIT 25.8 % (37.0-47.0); HEMOGLOBIN 8.4 gm/dL (12.0-15.0); MCHC 32.7 g/dL (28.0-37.0); RBC 3.02 mil/uL (4.20-5.00); RDW 16.7 % (10.5-14.5); WBC 7.7 thou/uL (4.0-11.0)
[2020-09-28 05:59] LABS: MCV 85.5 fL (80.0-100.0)
[2020-09-28 06:13] LABS: CALCIUM 8.3 mg/dL (8.5-10.1); CREATININE 0.9 mg/dL (0.6-1.0); POTASSIUM 4.2 mmol/L (3.5-5.1)
[2020-09-28 07:00] VITALS: BP 177/121
--- NOTE | 2020-09-28 13:41 | NUR ---
ON-GOING ASSESSMENT: CM REVIEWED CHART AND MET WITH PATIENT. PT LAST LEFT THE HOSPITAL WITH VIANEY CORRALES. CM SPOKE WITH PT ABOUT HH AND SHE REPORTS SHE DOES NOT FEEL SHE REALLY NEEDS HOME HEALTH AND IT WAS A WASTE. PT REPORTS SHE HAS A GOOD RX CARD AND ABLE TO GET HER LANTUS FREE SO REPORTS SHE SHOULD NOT NEED ANY ASSISTANCE AT DISCHARGE. CM WILL CONTINUE TO FOLLOW TO ASSIST NEEDED. PTS BS REMAIN LABILE.
[2020-09-28 16:19] VITALS: BP 125/85
--- NOTE | 2020-09-28 16:54 | NUR ---
PT ALERT AND ORIENTED TIMES FOUR. VSS, IVF INFUSING PER ORDER. PT C/O PAIN AND NAUSEA BOTH PRN MEDICTIONS GIVEN [facility] GOOD RELEIF. PT WORKED VERY WELL WITH PT/OT TODAY. PT TOLERATES MEDS ABD MEALS. PT MOM AT BEDSIDE THIS AFTERNOON. WILL CONTINUE TO MONITOR.
[2020-09-28 19:00] VITALS: BP 138/88
[2020-09-29 07:18] VITALS: BP 148/98
--- NOTE | 2020-09-29 08:30 | NUR ---
PT AMBULATING TO BATHROOM WITH STANDBY ASSIST AND IS TOLERATING WELL. LORTAB PROVIDING PAIN RELIEF. RESTING COMFORTABLY. NO NEEDS VOICED. CALL LIGHT WITHIN REACH. FREQUENT OBSERVATION.
--- NOTE | 2020-09-29 16:15 | NUR ---
ON-GOING ASSESSMENT: CM REVIEWED CHART AND MET WITH PATIENT. 5N LIASON STATING PT WANTS TO GO TO [facility]. CM ALSO SPOKE WITH THERAPIST WHO REPORTS THEY SIGNED OFF AND DISCHARGED PT SHE IS DOING SO WELL.CM MET WITH PATIENT AND NOTIFIED HER REFERRAL COULD BE SENT BUT SHE IS LIKELY NOT MEETING CRITERIA FOR SNF AND LIKELY DENIAL. PT STATING SHE WANTS TO TRY. PT REPORTS SHE IS OPEN TO ANY REHAB. GUERA SPOKE WITH LIASON FROM [facility] WHO REPORTS THEY CAN NOT ACCPET A 20 YR OLD PT TO THEIR SNF. CM SENT REFERRAL TO [facility] AND AWAITING INPUT. CM REQUESTED THEY SUBMIT FOR AUTH IF ABLE TO MEDICALLY ACCEPT.
--- NOTE | 2020-09-29 18:25 | NUR ---
Patient alert and orinted x4, room air, up with sba, nausea and pain medications given per MAR, vitals stable and afbriele. Mother updated on patient per patients permission. Mother - Esther Guajardo [phone] would like to be updated by case management if possible. Call light with in reach, bed alarm on, will continue to monitor.
[2020-09-29 20:00] VITALS: BP 123/76
--- NOTE | 2020-09-30 03:52 | NUR ---
ASSESSMENT: PT REMAIN ALERT AND ORIENT TIMES FOUR. UP TO BR WITH SBA. PT WAS PLEASANT TOWARDS THIS RN. QUESTIONS WERE ANSWERED. VSS, AFEBRILE. MOM HASN'T CALLED THUS FAR. PAIN MEDS GIVEN DRESSING ON LEFT SHOULDER C/D/I. PT HOLDS ARM WHEN AMBULATING AND ELEVATE UPON PILLOW WHILE IN BED. PROGRESSING SLOWLY TOWARDS DC GOALS. WILL CONTINUE TO MONITOR.
[2020-09-30 07:51] VITALS: BP 139/97
[2020-09-30 08:14] VITALS: BP 99/61
[2020-09-30 09:18] VITALS: BP 148/108
[2020-09-30 12:58] LABS: HEMOGLOBIN 7.9 gm/dL (12.0-15.0); MCH 27.7 pg (26.0-34.0); MCHC 31.8 g/dL (28.0-37.0); MCV 86.9 fL (80.0-100.0); RBC 2.87 mil/uL (4.20-5.00); RDW 16.5 % (10.5-14.5); WBC 8.3 thou/uL (4.0-11.0)
[2020-09-30 13:23] LABS: ALBUMIN 2.1 g/dL (3.4-5.0); ANION GAP 5 mmol/L (7-16); BUN 20 mg/dL (7-18); CALCIUM 8.6 mg/dL (8.5-10.1); CHLORIDE 105 mmol/L (98-107); CO2 29 mmol/L (21-32); CREATININE 1.1 mg/dL (0.6-1.0); GLUCOSE 89 mg/dL (74-106); POTASSIUM 4.5 mmol/L (3.5-5.1); SGOT 104 U/L (15-37); SGPT 65 U/L (14-59); SODIUM 139 mmol/L (136-145); TOTAL BILIRUBIN < 0.1 mg/dL (0.2-1.0); TOTAL PROTEIN 7.1 g/dL (6.4-8.2)
--- NOTE | 2020-09-30 14:55 | NUR ---
GEOSPATIAL INFORMATION TECHNOLOGIST FAXED REFERRAL AND DCP FAXED TODAY'S PHYSICAL THERAPY REPORT AND NEGATIVE COVID RESULT (09/26) TO [facility]. WILL CONFIRM WITH SOWMYA/YOUSUF THAT SHE RECEIVED. [facility] P [phone]; FAX [phone]
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
--- NOTE | 2020-09-30 19:51 | NUR ---
Patient is alert and orinted x4, up with SBA, bed alarm on, tolerating diet well, pain and nausea medications given per MAR, vital stable, and afbrile Call light with in reach, will continue to monior.
--- NOTE | 2020-09-30 20:40 | NUR ---
This RN and Dr. Whitley asked patient previously if she had any insulin in the room and using it. Patient stated "no". To both RN and physician. At 1600 Edi Knowles with Psychiatry. RN was stating why he was consulted. He wanted to get [employer] Security involved at this time to search her belongings for any insulin. Patient was sleeping in room upon entering no lights were on. RN gently woke patient up and turned the lights on and started to interduce Benson. Benson started asking patient about insulin and if she was taking her own due to her glucoses being high then going to 23. Patient was upset and it escalated quickly between them both. Nydia, security, this RN, Uziel CAMPBELL, patients sister present while security was searching patients purse - he found 2 vials of Humalog and 4 Benadry. Gutierrez was updated and that there wasn't anything to draw up the medication. Sister took purse home with her and patient was ok with that. Gutierrez called at 1714 by RN because patient would like to leave and get care else where. RN asked if he could talk on the phone to the patient to the patient to help explain and address patients concerns at this time. Erik is ok that patient not have a 1 on 1 and no bags in room. Patient is more comfortable about staying at this time and physican will see her early in the morning.
[2020-09-30 23:42] VITALS: BP 128/81
--- NOTE | 2020-10-01 03:36 | NUR ---
ASSUMED CARE AT 1900. PT IS A/O X4 AND IS UP WITH SBA TO THE BR. PT IS PLEASANT AND COOPERATIVE. BP ELEVATED AT THE START OF SHIFT. HS BS ELEVATED. PT REFUSED HS INSULIN. RECHECKED BS AT MIDNIGHT AND SUGAR HAD DROPPED A SIGNIFICANT AMOUNT. THIS EARLY AM THE BS IS RISING AGAIN. VSS AT MIDNIGHT UPON RECHECK. C/O NAUSEA. PRN NAUSEA MEDICATION GIVEN DIRECTED. PT IN ROOM NEAR NURSES STATION WITH FREQUENT CHECKS. CALL LIGHT IS WITHIN REACH. CALLS OUT APPROPRIATELY. WILL CONTINUE TO MONITOR.
[2020-10-01 06:10] LABS: HEMATOCRIT 22.4 % (37.0-47.0); HEMOGLOBIN 7.2 gm/dL (12.0-15.0); MCH 27.5 pg (26.0-34.0); MCV 86.1 fL (80.0-100.0); RBC 2.61 mil/uL (4.20-5.00); WBC 9.4 thou/uL (4.0-11.0)
[2020-10-01 06:26] LABS: CALCIUM 8.2 mg/dL (8.5-10.1); CREATININE 1.1 mg/dL (0.6-1.0); POTASSIUM 5.5 mmol/L (3.5-5.1)
[2020-10-01 07:10] VITALS: BP 153/94
[2020-10-01 16:20] VITALS: BP 152/97
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
[2020-10-01 20:00] VITALS: BP 146/91
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
[2020-10-02 05:59] LABS: HEMOGLOBIN 7.1 gm/dL (12.0-15.0)
[2020-10-02 06:00] LABS: MCH 27.8 pg (26.0-34.0); MCHC 32.2 g/dL (28.0-37.0); MCV 86.3 fL (80.0-100.0); RBC 2.55 mil/uL (4.20-5.00); RDW 16.9 % (10.5-14.5); WBC 8.6 thou/uL (4.0-11.0)
[2020-10-02 06:08] LABS: CALCIUM 8.2 mg/dL (8.5-10.1); CREATININE 1.2 mg/dL (0.6-1.0); POTASSIUM 4.7 mmol/L (3.5-5.1); TOTAL BILIRUBIN 0.1 mg/dL (0.2-1.0); TOTAL PROTEIN 6.4 g/dL (6.4-8.2)
[2020-10-02 07:10] VITALS: BP 171/116
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
[2020-10-02 19:15] VITALS: BP 133/81
--- NOTE | 2020-10-03 04:40 | NUR ---
UPON SHIFT ASSESSMENT, PT AOX4. PT REPORTS 7-10/10 PAIN IN SHOULDER/RUE. PT RECEIVING PRN PO NORCO Q4HR WITH PRN PO APAP Q4HR AVAILABLE. PT DENIES SOB AT REST, REPORTS SOB WITH EXERTION, NO DESATURATIONS NOTED, REFUSING O2 APPLICATION, REMAINS ON ROOM AIR. PT TOLERATING PO INTAKE OF FLUIDS AND CARB CONTROLLED DIET WITHOUT ISSUE. PT WITHOUT NAUSEA OR EMESIS. PT AMBULATING INDEPENDENTLY IN ROOM AND TO BATHROOM. PT REPORTS NUMBNESS AND TINGLING IN RUE, DECREASED ROM IN RUE- FLACCIDITY NOTED. CAPILLARY REFILL LESS THAN 3SEC IN ALL EXTREMITIES. PERIPHERAL PULSES PALPABLE IN BUE, UNABLE TO PALPATE PULSES IN BLE. +2-3 PITTING EDEMA NOTED TO BLE, ABDOMEN EDEMATOUS AND FIRM. LAB VALUES REVIEWED- ALBUMIN 2.0, BUN 28, COUNTY RECORDS MANAGEMENT OFFICER 1.2 NOTED. DURING ASSESSMENT, PT MOM ARRIVED TO UNIT, EXPRESSED CONCERNS REGARDING SWELLING THROUGHOUT PT BODY AND LONG ACTING INSULIN. ATTENDING DR. CHRISTENSEN NOTIFIED, RECEIVED ORDERS FOR CMP FOR AM LAB RUN, CONTINUOUS PULSE OXIMETER MONITORING, ONETIME IV PUSH 40MG LASIX, DAILY WEIGHTS, AND X1 ALBUMIN BOTTLE VIA IVPB. PT AND PT MOM UPDATED IN REGARDS TO PLAN OF CARE, NO ADDITIONAL CONCERNS EXPRESSED, PT MOM ANTICIPATES BEING PRESENT WHEN PROVIDERS ROUND. PT ENCOURAGED TO NOTIFY STAFF FOR ALL NEEDS, CALL LIGHT WITHIN REACH, BED LOCKED IN LOWEST POSITION, ROOM REMAINS NEAR NURSES STATION, FREQUENT MONITORING WILL CONTINUE.
[2020-10-03 04:52] VITALS: BP 136/89
[2020-10-03 05:33] LABS: ALBUMIN 2.3 g/dL (3.4-5.0); CALCIUM 8.2 mg/dL (8.5-10.1); CREATININE 1.2 mg/dL (0.6-1.0); POTASSIUM 4.2 mmol/L (3.5-5.1); TOTAL BILIRUBIN 0.2 mg/dL (0.2-1.0); TOTAL PROTEIN 6.4 g/dL (6.4-8.2)
[2020-10-03 07:52] VITALS: BP 166/107
--- NOTE | 2020-10-03 12:02 | NUR ---
Patient alert and orinted x4, on room air, up ad dianne in room, pain and nausea medication given per MAR, vital signs stable, and afbreile. Call light with in reach, will continue to monitor.
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
[2020-10-03 14:42] VITALS: BP 166/107
[2020-10-03 16:15] VITALS: BP 136/92
[2020-10-03 19:49] VITALS: BP 158/109
--- NOTE | 2020-10-04 03:23 | NUR ---
PT IS A/O X4 AND IS UP AD PARRISH IN ROOM. ROOM AIR. B/P ELEVATED THIS NOC. SCHEDULED BP MEDICATION GIVEN DIRECTED. AFEBRILE. C/O ITCHING AND NAUSEA. PRN BENEDRYL AND NAUSEA MEDICATION GIVEN DIRECTED. HS BS ELEVATED. SCHEDULED INSULIN GIVEN DIRECTED. PT IS PLEASANT AND COOPERATIVE. DRSGS TO RIGHT SHOULDER C/D/I. GENERALIZED EDEMA ALL OVER NOTED. ELEVATED BILAT LE ON TWO PILLOWS THIS NOC FOR COMFORT. CALL LIGHT IS WITHIN REACH. CALLS OUT APPROPRIATELY. WILL CONTINUE TO MONITOR.
[2020-10-04 04:43] VITALS: BP 155/104
[2020-10-04] MEDS ORDERED: BENICAR20 MG PO (07:43)
[2020-10-04] MEDS ORDERED: ZOLOFT25 MG PO (07:43)
[2020-10-04] MEDS ORDERED: LANTUS SUBQ (07:44)
[2020-10-04] MEDS ORDERED: ALPRAZOLAM 0.50.5 M1 PO (07:44)
[2020-10-04 08:20] VITALS: BP 148/108
[2020-10-04 09:14] VITALS: BP 166/107
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
[2020-10-04 10:21] VITALS: BP 166/107
[2020-10-04 10:40] LABS: HEMATOCRIT 23.5 % (37.0-47.0); HEMOGLOBIN 7.5 gm/dL (12.0-15.0); MCH 27.6 pg (26.0-34.0); MCV 86.4 fL (80.0-100.0); RBC 2.72 mil/uL (4.20-5.00); RDW 17.3 % (10.5-14.5); WBC 9.3 thou/uL (4.0-11.0)
[2020-10-04 11:07] LABS: ALBUMIN 2.2 g/dL (3.4-5.0); CALCIUM 8.5 mg/dL (8.5-10.1); CREATININE 1.2 mg/dL (0.6-1.0); POTASSIUM 3.6 mmol/L (3.5-5.1); TOTAL BILIRUBIN 0.1 mg/dL (0.2-1.0); TOTAL PROTEIN 6.8 g/dL (6.4-8.2)
--- NOTE | 2020-10-04 12:06 | NUR ---
RN went over all discharge teaching, all questions answered, IV out, and wheeled out in wheelchair.
[2020-10-05 00:06] LABS: GLYCOHEMOGLOBIN (HGB A1C) 11.7 % (4.8-5.6)
== END 2020-10-04 13:22 | disposition home health service (06) | DRG 193 ==
LOC: ER 12:55 → EROBS 17:04 → ICU 17:04 → 4S 17:04 → ICU 18:30 → 4S 09-27 19:42
PROVIDERS: Emergency Medicine; ADMIT Family Medicine; ATTEND Family Medicine
DX: J18.9 Pneumonia, unspecified organism (principal); N17.0 Acute kidney failure with tubular necrosis; E43 Unspecified severe protein-calorie malnutrition; I26.99 Other pulmonary embolism without acute cor pulmonale; I42.9 Cardiomyopathy, unspecified; E10.65 Type 1 diabetes mellitus with hyperglycemia; F41.9 Anxiety disorder, unspecified; F32.9 Major depressive disorder, single episode, unspecified; F39 Unspecified mood [affective] disorder; E10.40 Type 1 diabetes mellitus with diabetic neuropathy, unspecified; K59.00 Constipation, unspecified; I10 Essential (primary) hypertension; Z20.822 Contact with and (suspected) exposure to COVID-19; Z90.49 Acquired absence of other specified parts of digestive tract; Z79.01 Long term (current) use of anticoagulants; Z79.899 Other long term (current) drug therapy; Z88.5 Allergy status to narcotic agent; Z88.0 Allergy status to penicillin; Z88.8 Allergy status to other drugs, medicaments and biological substances; Z68.27 Body mass index [BMI] 27.0-27.9, adult
CPT/HCPCS: 10078; 10102

== ENCOUNTER 2021-01-07 16:35 | Inpatient (IN) | payer OTHER ==
[~2021-01-07] VITALS: Ht 162.6 cm; Wt 54.4 kg
--- NOTE | ~2021-01-07 | EMS ---
[address] [address] EMS Patient Care Report Name: NEEL CASTILLO Room #: PRE MFlorentinRFlorentin#: [id number] Admission: Attend Phys: Discharge: Date of : [birth year] Report #: [id number] THIS REPORT FOR: //name// Report Transmitted: 01/07/2021 16:02 EMS Care Summary [place], [place]/[facility] Incident [id number] @ 01/07/2021 15:58 Incident Location [address] [place], [place] [id number] Patient NEEL CASTILLO Female, 20 Years 2000 Patient Address [address] [place] [id number] Patient History Diabetes, Patient Allergies Penicillin allergy, Patient Medications Insulin, Benadryl, Chief Complaint HYPERGLYCEMIA Disposition Transported No Lights/[place] Dispatch Reason Diabetic Problem Transported To [facility] Narrative M36 ARRIVES TO FIND 20 Y/O F PT COMPLAINING OF A SUDDEN ONSET OF NAUSEA AND VOMITING. PT'S BLOOD GLUCOSELEVEL READING IS 'HIGH.' [address] [address] EMS Patient Care Report Name: NEEL CASTILLO Room #: PRE [facility].#: [id number] Admission: Attend Phys: Discharge: Date of : [birth year] Report #: [id number] ASSESSMENTS AND TREATMENTS NOTED. PT MOVED TO AMBULANCE VIA EXTREMITY LIFT. PT SECURED TO COT. PT TRANSPORTED. M36 ARRIVES AT DESTINATION. PT MOVED TO ROOM IN ED. PT SLIDES FROM COT TO BED IN ROOM. PT CARE TRANSFERRED.M36 RETURNS TO SERVICE. Initial Vitals @16:15P: 117,BP: 199/119,SpO2: 100, @16:25P: 114,R: 26,BP: 179/85,Pain: 0/10,GCS: 15,SpO2: 98,Revised Trauma: 12, @16:10P: 116,R: 26,BP: 191/116,Pain: 0/10,GCS: 15,Glucose: -2,SpO2: 100,Revised Trauma: 12, Assessments @16:24MENTAL:No Abnormalities,SKIN:No Abnormalities,HEENT:Head/Face: No Abnormalities,Eyes: No Abnormalities,Neck/Airway: No Abnormalities,LUNG SOUNDS:General: Nausea,Left Upper: No Abnormalities,Right Upper: No Abnormalities,Left Lower: No Abnormalities,Right Lower: No Abnormalities,ABDOMEN:General: Nausea,Left Upper: No Abnormalities,Right Upper: No Abnormalities,Left Lower: No Abnormalities,Right Lower: No Abnormalities,PELVIS//GI:No Abnormalities,EXTREMITIES:Right Leg: Weakness,Left Leg: Weakness,Left Arm: No Abnormalities,Right Arm: No Abnormalities,PULSE:NEURO:No Abnormalities,@16:04MENTAL:Time Oriented,Person Oriented,Place Oriented,Event Oriented,SKIN:HEENT:LUNG SOUNDS:General: Nausea,General: Vomiting,ABDOMEN:General: Nausea,General: Vomiting,PELVIS//GI:EXTREMITIES:Left Leg: Weakness,Right Leg: Weakness,PULSE:NEURO: Impression Diabetic Hyperglycemia Procedures @16:04ALS AssessmentResponse: UnchangedSucceeded@16:10Saline Lock 0cc (18 ga) Site: Antecubital-LeftResponse: UnchangedFailed@16:093-Lead ECGResponse: UnchangedSucceeded@16:11Zofran - 4 Milligrams (mg) - Intravenous (IV)Response: Unchanged@16:11Saline Lock 0cc (20 ga) Site: Hand-LeftResponse: UnchangedFailed@16:10Saline Lock 0cc (20 ga) Site: Antecubital-LeftResponse: UnchangedFailed@16:11Saline Lock 0cc (20 ga) Site: Hand-RightResponse: UnchangedSucceeded@16:11Normal Saline (.9% NaCl) 300cc (20 ga) Site: Hand-RightResponse: UnchangedSucceeded Timeline 15:56,Call Received 15:56,Dispatch Notified 15:58,Dispatched 15:58,En Route 16:02,On Scene 16:04,[place] [address] EMS Patient Care Report Name: NEEL CASTILLO Room #: [facility].R.#: [id number] Admission: Attend Phys: Discharge: Date of : [birth year] Report #: [id number] 16:04,ALS Assessment,Response: UnchangedSucceeded, 16:09,3-Lead ECG,Response: UnchangedSucceeded, 16:10,Saline Lock 0cc 18 ga Site: Antecubital-Left,Response: UnchangedFailed, 16:10,BP: 191/116 M,PULSE: 116,RR: 26 R,SPO2: 100 Ox,ETCO2: ,BG: -2,PAIN: 0,GCS: 15, 16:10,Saline Lock 0cc 20 ga Site: Antecubital-Left,Response: UnchangedFailed, 16:11,Saline Lock 0cc 20 ga Site: Hand-Left,Response: UnchangedFailed, 16:11,Zofran - 4 Milligrams (mg) - Intravenous (IV),Response: Unchanged 16:11,Saline Lock 0cc 20 ga Site: Hand-Right,Response: UnchangedSucceeded, 16:11,Normal Saline (.9% NaCl) 300cc 20 ga Site: Hand-Right,Response: UnchangedSucceeded, 16:15,BP: 199/119 M,PULSE: 117,RR: R,SPO2: 100 Ox,ETCO2: ,BG: ,PAIN: ,GCS: , 16:22,Depart Scene 16:25,BP: 179/85 M,PULSE: 114,RR: 26 R,SPO2: 98 Ox,ETCO2: ,BG: ,PAIN: 0,GCS: 15, 16:44,At Destination 16:48,Call Closed Disclaimer v1.1 Copyright 2020 [employer] This EMS Care Summary contains data elements from the applicable legal record (which may be displayed differently). It is designed to provide pertinent information for the following purposes: continuity of care, clinical quality, and state data reporting. The complete legal record is available to ED staff and administrators of the receiving hospital in [employer] Patient Tracker. All data is provided "as is."
[2021-01-07 16:35] VITALS: BP 226/122
[~2021-01-07 16:35] MED LIST changes: +ALPRAZOLAM 0.50.5 M1 PO; +BENICAR20 MG PO; -CARVEDILOL ER10 MG PO; +COZAAR 25 MG TA25 M1 PO; +ZOLOFT25 MG PO
[2021-01-07 16:51] LABS: BE(vivo) -1.9 mmol/L (-2 to +3); HCO3 22.1 mmol/L (22.0-26.0); PO2 VENOUS 59.6 mmHg (35.0-45.0)
[2021-01-07 16:52] LABS: ABSOLUTE NEUTROPHILS 8.5 thou/uL (1.4-8.2); BASOPHILS 0.1 % (0.0-2.0); HEMATOCRIT 31.4 % (37.0-47.0); LYMPHOCYTES 22.4 % (24.0-44.0); MCH 26.6 pg (26.0-34.0); MCHC 31.9 g/dL (28.0-37.0); MCV 83.3 fL (80.0-100.0); PLATELET COUNT 342 thou/uL (150-400); POLYS 70.5 % (36.0-66.0); RBC 3.77 mil/uL (4.20-5.00); RDW 17.5 % (10.5-14.5); WBC 12.1 thou/uL (4.0-11.0)
[2021-01-07 17:18] LABS: ALBUMIN 2.3 g/dL (3.4-5.0); CALCIUM 8.4 mg/dL (8.5-10.1); CREATININE 1.4 mg/dL (0.6-1.0); MAGNESIUM 1.8 mg/dL (1.8-2.4); PHOSPHORUS 4.1 mg/dL (2.6-4.7); POTASSIUM 3.9 mmol/L (3.5-5.1); TOTAL BILIRUBIN 0.2 mg/dL (0.2-1.0)
[2021-01-07 17:34] LABS: URINE BILIRUBIN NEGATIVE (Negative); URINE BLOOD 2+ (Negative); URINE CLARITY CLEAR; URINE COLOR YELLOW; URINE GLUCOSE-RANDOM* 3+ (Negative); URINE KETONES 2+ (Negative); URINE LEUKOCYTES-REFLEX NEGATIVE (Negative); URINE NITRITE-REFLEX NEGATIVE (Negative); URINE PROTEIN (DIPSTICK) 2+ (Negative); URINE UROBILINOGEN 0.2 E.U./dl (0.2-1.0)
[2021-01-07 17:42] LABS: SQUAMOUS >10 Many /LPF (0-3)
[2021-01-07 17:43] LABS: BACTERIA-REFLEX None Seen /HPF (None Seen); CASTS None Seen /LPF (None Seen); CRYSTALS None Seen /LPF (None Seen); URINE RBC 3-10 Few /HPF (NONE SEEN); URINE WBC-REFLEX 0-5 Rare /HPF (0-5)
[2021-01-07 21:42] LABS: MAGNESIUM 1.8 mg/dL (1.8-2.4); PHOSPHORUS 3.9 mg/dL (2.6-4.7)
[2021-01-07 21:44] LABS: ALBUMIN 1.8 g/dL (3.4-5.0); CALCIUM 7.4 mg/dL (8.5-10.1); CREATININE 1.2 mg/dL (0.6-1.0); PHOSPHORUS 3.4 mg/dL (2.6-4.7); POTASSIUM 3.5 mmol/L (3.5-5.1)
[2021-01-07 23:37] VITALS: BP 123/80
[2021-01-07 23:59] VITALS: BP 111/65
[2021-01-08] VITALS (10 sets, daily range): BP systolic 110–161; BP diastolic 49–113
--- NOTE | 2021-01-08 00:53 | NUR ---
2355: PT ADMITTED TO ICU ROOM 236 WITH DKA; INSULIN GTT AND D5 1/2NS W 20 MEQ KCL INFUSING PER PROTOCOL VIA IV IN RIGHT ANTECUBITAL. PT ALERT, ORIENTED X4, MONITOR SINUS TACH RATE 110. PT CAME TO UNIT VIA WHEELCHAIR AND ABLE TO TRANSFER SELF TO BED. DR. CHRISTENSEN CALLED FOR ADMISSION ORDERS. PT C/O OF MIRAINE HEADACHE, MILD NAUSEA.
[2021-01-08 01:42] LABS: CALCIUM 8.1 mg/dL (8.5-10.1); CREATININE 1.2 mg/dL (0.6-1.0); PHOSPHORUS 4.1 mg/dL (2.6-4.7); POTASSIUM 3.7 mmol/L (3.5-5.1)
[2021-01-08 05:33] LABS: ALBUMIN 2.1 g/dL (3.4-5.0); CREATININE 1.1 mg/dL (0.6-1.0); PHOSPHORUS 3.9 mg/dL (2.5-4.9); POTASSIUM 3.7 mmol/L (3.5-5.1)
--- NOTE | 2021-01-08 09:28 | EKG ---
[address] [place] [address] ELECTROCARDIOGRAM REPORT Name: NEEL CASTILLO Eamon Room #: 236-[facility] [place] M.R.#: [id number] Admission: 01/07/21 Attend Phys: Cristino Whitley MD Discharge: Date of : 98 Report #: [id number] [facility] ED Test Date: 2021-01-07 Test Time: 16:43:11 Pat Name: NEEL CASTILLO Department: Room: 236 Gender: F Feather Maker: MALCOLM : 2000 Requested By: Bailey Gallo Order Number: [id number] MD: Antonio Son Measurements Intervals [place] Rate: 112 P: 72 OR: 142 QRS: 67 QRSD: 81 T: 65 QT: 335 QTc: 458 Interpretive Statements Sinus tachycardia Otherwise normal Compared to ECG 09/26/2020 13:01:26 No significant change was found Electronically Signed On 01-08-2021 9:28:07 CDT by Antonio Son [email or web address] <ELECTRONICALLY SIGNED> By: Antonio Son MD, [facility] 01/08/21 0928 1643 [id number] Antonio Son MD, FACC /EPI
[2021-01-08] MEDS ORDERED: ALPRAZOLAM 0.0.25 MG PO (10:01)
[2021-01-08] MEDS ORDERED: XARELTO20 MG PO (10:05)
--- NOTE | 2021-01-08 10:43 | NUR ---
patient transferred to room 442 at 1032. patient's belongings taken with patient as well as chart.
--- NOTE | 2021-01-08 13:36 | NUR ---
TRANSFER FROM CCU, A/O X 4. ROOM AIR. AD PARRISH. BS 401 23 UNITS OF INSULIN GIVEN. RIGHT HAND AND RIGHT AC IV- DRESSING DRY, CLEAN, AND INTACT. VERY ANXIOUS. BP 193/137 DR. CHRISTENSEN CALLED AND NOTIFIED AND ORDERED ONE TIME DOSE OF IV ATIVAN. ATIVAN AND MORPHINE GIVEN FOR HEADACHE. RECHECK BP 165/119 FERMIN ORDERED HER HOME BP MEDS.
--- NOTE | 2021-01-08 18:39 | NUR ---
PATIENT STATES AROUND 1800 SHE WAS SHAKEY. PCT CHECKED BS AND IT WAS 50. GLUCOSE TABLET GIVEN ALONG WITH APPLE JUICE AND CRAKERS. OTHER STAFF MADE NURSE AWARE THAT PATIENT HAS BEEN HERE BEFORE AND SELF ADMINISTERED INSULIN. NURSE HAD PATIENT OPEN HER PURSE AND TAKE EVERYTHING OUT. XARETO, PLAVIX, LOSARTAN, INSULIN PUMP, AND 3 EMPTY INSULIN SYRINGES WERE TAKEN FROM HER AND TOOK DOWN TO PHARMACY. RECHECK BS 67. DR. Resendiz CALLED AND MADE AWARE, HE SAID TO HOLD 10 UNITS OF LONG ACTING INSULIN.
--- NOTE | 2021-01-09 03:24 | NUR ---
CONT CARE OF PT AT 0300 REPORT RECIEVED FORM OTHER RN. PT RESTING IN BED. C/O ITCHING AND REQUESTED BENADRYL. NIGHT TIME SNACKS PROVIDED. CALL LIGHT AT REACH WILL CONT TO MONITOR.
[2021-01-09 04:37] VITALS: BP 165/119
[2021-01-09 05:36] LABS: ABSOLUTE NEUTROPHILS 4.6 thou/uL (1.4-8.2); BASOPHILS 0.4 % (0.0-2.0); EOSINOPHILS 1.6 % (0.0-3.0); HEMATOCRIT 31.2 % (37.0-47.0); HEMOGLOBIN 9.7 gm/dL (12.0-15.0); MCHC 31.2 g/dL (28.0-37.0); MCV 83.4 fL (80.0-100.0); MONOCYTES 5.4 % (1.0-8.0); PLATELET COUNT 333 thou/uL (150-400); POLYS 48.6 % (36.0-66.0); RBC 3.74 mil/uL (4.20-5.00); RDW 17.3 % (10.5-14.5); WBC 9.4 thou/uL (4.0-11.0)
[2021-01-09 05:46] LABS: CREATININE 1.2 mg/dL (0.6-1.0); POTASSIUM 4.2 mmol/L (3.5-5.1); TOTAL BILIRUBIN 0.2 mg/dL (0.2-1.0); TOTAL PROTEIN 6.2 g/dL (6.4-8.2)
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
[2021-01-09 15:54] VITALS: BP 127/88
--- NOTE | 2021-01-09 18:30 | NUR ---
PT ASSESSED THIS AM. DR. CHRISTENSEN IN EARLY TO SEE PT. NOT EATING WELL EARLY PART OF DAY AND GLUCOSE DROPPED. PT GIVEN IV DEXTROSE X2. DR. CHRISTENSEN NOTIFIED W/ UPDATE. LARGE OUTBREAK OF HIVES/WELTS OVER BODY. DR. LOVELL. MEDS GIVEN W/ SOME RELIEF. GLUCOSE BETTER AT DINNER AND PT ATE LARGE TYPING SECTION CHIEF SALAD. FEELING SOME BETTER.
[2021-01-09 19:27] VITALS: BP 156/105
[2021-01-10 04:24] VITALS: BP 132/89
--- NOTE | 2021-01-10 05:41 | NUR ---
RECIEVED CARE OF THIS PATIENT AT 1900. PATIENT ALERT AND ORIENTED X4. UP AD PARRISH. C/O PAIN, ITCHING AND ANXIETY. MED GIVEN FOR ALL. BLOOD SUGAR AT 2004 WAS 267. SS INSULIN AND SCHEDULED INSULIN GIVEN. BLOOD SUGAR RETAKEN AROUNF ALEJA AD WAS IN THE LOW 30'S X 2 A FEW MINUTES APART. TREATED WITH OJ AND A BOX LUNCH. TAKEN ABOUT 1 HOUR LATER WAS 70. WILL CONTINUE TO MONITOR. HAS HIVES ALL OVER BODY AND EXT. SLEPT LITTLE THIS SHIFT.
[2021-01-10 08:08] VITALS: BP 93/53
[2021-01-10 08:11] VITALS: BP 134/94
--- NOTE | 2021-01-10 11:27 | NUR ---
ON-GOING ASSESSMENT: CM REVIEWED CHART. PER ATTENDING PT IS FEELING BETTER AND INSULIN IS BEING ADJUSTED. ANTICIPATE POSSIBLE DISCHARGE HOME SOON. PT SHOULD HAVE NO NEEDS FROM CM PRIOR TO DISCHARGE. CM WILL CONTINUE TO FOLLOW TO ASSIST NEEDED.
--- NOTE | 2021-01-10 12:45 | NUR ---
ASSUMED PT CARE THIS AM. PT IS ALERT & ORIENTED X4. PT HAS IV SITE ON R HAND SALINE LOCKED. PT IS UP AD PARRISH. INFORMED DR THAT PT SUGAR WAS 407 THIS AM AND GIVEN LISPRO SLIDING SCALE AND HALF DOSE OF GLARGINE PER DR ORDERED. PT C/O OF NAUSEA AND PAIN. GIVEN NAUSEA AND PAIN MEDICATIONS PER PT REQUEST. INFORMED DR THAT PT THINK SHE DISLOCATED HER R ARM AND ORDERED XRAY PER PT REQUEST. PT BG THIS AFTERNOON WAS LOW. GIVEN ORANGE JUICE AND GLUCOSE GEL. RECHECK AGAIN THE BG. PT MOM WAS AT THE BEDSIDE. INFORMED DR ABOUT OF POSSIBLE TRANSFERING TO ANOTHER HOSPITAL WITH AN PREDATOR CONTROL TRAPPER. INFORMED CM WELL. WILLN CONTINUE TO MONITOR PT. FOLLOW POC.
[2021-01-10 16:09] VITALS: BP 134/95
[2021-01-10 21:28] VITALS: BP 117/79
--- NOTE | 2021-01-11 03:47 | NUR ---
ASSUMED PT CARE AT AROUND 1915 HRS. PT STATED FEELING LIKE BLOOD SUGAR IS DROPPING SPOT CHECK AT 1951 WAS 79. PT GIVEN APPLE JUICE (2), WITH SOME SALTINE CRACKERS. PT THEN ASKED FOR ORANGE JUICE WHICH SHE DRANK 3 PKTS . PT ALSO ATE SOME OF HER SALAD.LANTUS GIVEN PER KARIS, LATER CHECK WAS 277. PT ALSO C/O PAIN TO R SHOULDER, MOSLY WANTING MORHINE DUE TO ORAL MEDS CAUSING NAUSEA. PAIN ED PROVIDED, PT ABLE TO TAKE NORCO ONE TIME. PT ALSO HAS CHRONIC ITCHING WITH HIVES, BENADRYL PRN GIVEN WITH FAIR REPORTED EFFECT.SHE IS UP AD PARRISH.HAS SOME MODERATE ANXIETY, THERAPEUTIC COMMUNICATION PROVIDED.. CALLS WITH NEEDS.
[2021-01-11 07:18] VITALS: BP 118/20; BP 148/107
[2021-01-11] MEDS ORDERED: CARVEDILOL25 MG PO (12:08)
[2021-01-11] MEDS ORDERED: NORVASC5 MG PO (12:10)
[2021-01-11 15:29] VITALS: BP 148/107
--- NOTE | 2021-01-11 15:29 | NUR ---
ON-GOING ASSESSMENT: CM REVIEWED CHART. PT HAS ORDERS TO DISCHARGE HOME TODAY WITH NO NEEDS. CASE CLOSED.
== END 2021-01-11 16:24 | disposition home or self-care (01) | DRG 637 ==
LOC: ER 16:35 → EROBS 19:56 → 4S 19:56 → ICU 23:54 → 4S 01-08 10:36
PROVIDERS: Nurse Practitioner Family; ADMIT Family Medicine; ATTEND Family Medicine
DX: E10.10 Type 1 diabetes mellitus with ketoacidosis without coma (principal); R65.11 Systemic inflammatory response syndrome (SIRS) of non-infectious origin with acute organ dysfunction; E43 Unspecified severe protein-calorie malnutrition; F41.9 Anxiety disorder, unspecified; I10 Essential (primary) hypertension; E10.41 Type 1 diabetes mellitus with diabetic mononeuropathy; E86.0 Dehydration; R53.1 Weakness; F12.10 Cannabis abuse, uncomplicated; F32.A Depression, unspecified; Z20.822 Contact with and (suspected) exposure to COVID-19; Z23 Encounter for immunization; Z87.81 Personal history of (healed) traumatic fracture; Z90.49 Acquired absence of other specified parts of digestive tract; Z87.828 Personal history of other (healed) physical injury and trauma; Z91.410 Personal history of adult physical and sexual abuse; Z79.899 Other long term (current) drug therapy; Z79.01 Long term (current) use of anticoagulants; Z88.0 Allergy status to penicillin; Z86.711 Personal history of pulmonary embolism; S44.91XD Injury of unspecified nerve at shoulder and upper arm level, right arm, subsequent encounter
CPT/HCPCS: 10078; 10102

== ENCOUNTER 2021-05-10 13:40 | Emergency (ER) | payer OTHER ==
[~2021-05-10] VITALS: Ht 167.6 cm; Wt 63.5 kg
[~2021-05-10 13:40] MED LIST changes: +ALPRAZOLAM 0.0.25 MG PO; +CARVEDILOL25 MG PO; +XARELTO20 MG PO
[2021-05-10 15:29] LABS: CALCIUM 7.6 mg/dL (8.5-10.1); POTASSIUM 3.9 mmol/L (3.5-5.1)
[2021-05-10] MEDS ORDERED: METHOCARBAMOL500 M2 PO (15:58)
[2021-05-10 16:04] VITALS: BP 182/113
== END 2021-05-10 16:04 | disposition home or self-care (01) ==
LOC: ER 13:40
PROVIDERS: Nurse Practitioner Family
DX: S46.911A Strain of unspecified muscle, fascia and tendon at shoulder and upper arm level, right arm, initial encounter (principal); S20.219A Contusion of unspecified front wall of thorax, initial encounter; E11.65 Type 2 diabetes mellitus with hyperglycemia; I10 Essential (primary) hypertension; F41.9 Anxiety disorder, unspecified; F32.9 Major depressive disorder, single episode, unspecified; Z90.49 Acquired absence of other specified parts of digestive tract; Z79.4 Long term (current) use of insulin; Z79.899 Other long term (current) drug therapy; Z88.0 Allergy status to penicillin; Z88.8 Allergy status to other drugs, medicaments and biological substances; X58.XXXA Exposure to other specified factors, initial encounter; Y93.89 Activity, other specified; Y92.89 Other specified places as the place of occurrence of the external cause; Y99.8 Other external cause status

== ENCOUNTER 2021-05-16 16:41 | Inpatient (IN) | payer OTHER ==
[~2021-05-16] VITALS: Ht 165.1 cm; Wt 65.8 kg
[~2021-05-16 16:41] MED LIST changes: +METHOCARBAMOL500 M2 PO
[2021-05-16 16:50] VITALS: BP 133/80
[2021-05-16 18:07] LABS: URINE BILIRUBIN NEGATIVE (Negative); URINE BLOOD 2+ (Negative); URINE CLARITY CLEAR; URINE COLOR YELLOW; URINE GLUCOSE-RANDOM* 3+ (Negative); URINE KETONES NEGATIVE (Negative); URINE LEUKOCYTES-REFLEX NEGATIVE (Negative); URINE NITRITE-REFLEX NEGATIVE (Negative); URINE PROTEIN (DIPSTICK) 2+ (Negative); URINE SPECIFIC GRAVITY 1.025 (1.005-1.035); URINE UROBILINOGEN 0.2 E.U./dl (0.2-1.0)
[2021-05-16 18:22] LABS: BACTERIA-REFLEX 1-9 Few /HPF (None Seen); CASTS None Seen /LPF (None Seen); CRYSTALS None Seen /LPF (None Seen); SQUAMOUS 4-10 Moderate /LPF (0-3); URINE RBC 3-10 Few /HPF (NONE SEEN); URINE WBC-REFLEX 0-5 Rare /HPF (0-5)
[2021-05-16 20:12] LABS: ABSOLUTE NEUTROPHILS 3.9 thou/uL (1.4-8.2); EOSINOPHILS 2.8 % (0.0-3.0); HEMOGLOBIN 9.5 gm/dL (12.0-15.0); LYMPHOCYTES 40.6 % (24.0-44.0); MCHC 32.8 g/dL (28.0-37.0); MCV 82.2 fL (80.0-100.0); MONOCYTES 5.2 % (1.0-8.0); PLATELET COUNT 350 thou/uL (150-400); POLYS 50.4 % (36.0-66.0); RBC 3.52 mil/uL (4.20-5.00); RDW 18.3 % (10.5-14.5); WBC 7.7 thou/uL (4.0-11.0)
[2021-05-16 20:25] LABS: CALCIUM 7.9 mg/dL (8.5-10.1); CREATININE 1.6 mg/dL (0.6-1.0); POTASSIUM 4.3 mmol/L (3.5-5.1)
[2021-05-16 20:31] LABS: ALBUMIN 1.7 g/dL (3.4-5.0); TOTAL BILIRUBIN 0.2 mg/dL (0.2-1.0); TOTAL PROTEIN 5.3 g/dL (6.4-8.2)
[2021-05-16 20:41] LABS: ANISOCYTOSIS 2+
[2021-05-17] MEDS ORDERED: HUMALOG100 UNIT/2 (01:39)
[2021-05-17 02:43] VITALS: BP 112/78
[2021-05-17 03:29] VITALS: BP 182/114
[2021-05-17 03:40] VITALS: BP 182/114
--- NOTE | 2021-05-17 06:01 | NUR ---
PT ADMITTED FROM ER AT 0300, ALERT AND ORIENTEDX4, ST ON TELE, ADMISSION ASSESSMENT, HX AND EDUCATIUON COMPLETED, C/O BLE, HEADACHE AND ABDOMINAL PAIN, HAZ TECH NOTIFIED, ORDERS RECEIVED, BLOOD SUGAR READING HIGH AND BP ELEVATED IN THE 180S SYSTOLIC, HAZ TECH NOTIFIED, ORDERS RECEIVED AND IMPLEMENTED, ZOFRAN GIVENX1 FOR NAUSEA, NO DISTRESS NOTED AT THIS TIME, WILL CONTINUE TO MONITOR
[2021-05-17 06:20] LABS: CALCIUM 7.7 mg/dL (8.5-10.1); CREATININE 1.6 mg/dL (0.6-1.0); POTASSIUM 4.5 mmol/L (3.5-5.1)
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
--- NOTE | 2021-05-17 15:27 | NUR ---
I have reviewed the documentation by KALE VILLALOBOS from 05/17/21 to 05/17/21 and I concur with it. PERLA JIMENEZ, PT, DPT
--- NOTE | 2021-05-17 16:02 | NUR ---
1500-PTS MOTHER TO BEDSIDE REPORTS SHE IS UNHAPPY WITH CARE AT THIS TIME. AND WOULD LIKE TO HAVE DAUGHTER SIGN AMA PAPERS, PT IS AGREEABLE TO MOMS PLAN. THIS RN AND RESISTOR TESTING MACHINE OPERATOR SPOKE WITH MOTHER AND PT IN ROOM 30 MINUTES, LISTENED AND ACKNOWLEDGED PTS CONCERNS. PT REPORTS SHE IS NOT UNHAPPY WITH THE CARE SHE HAS RECEIVED AN INPATIENT BUT UNHAPPY IN REGARDS TO PLAN OF CARE AND REPORTS SHE NEEDS MORE SPECALIZED SERVICES. PT A&OX4, VSS, POC GLU 295 PT AND MOTHER AWARE AND WILL CORRECT AT HOME. IV D/C. 1558-PT LEFT FLOOR AMA.
[2021-05-18 01:06] LABS: GLYCOHEMOGLOBIN (HGB A1C) 12.1 % (4.8-5.6)
== END 2021-05-17 16:29 | disposition left against medical advice (07) | DRG 682 ==
LOC: ER 16:41 → 4W 21:27 → EROBS 21:27 → 4W 05-17 02:38
PROVIDERS: Nurse Practitioner Family; Physician Assistant; ADMIT Hospitalist; ATTEND Hospitalist
DX: N17.9 Acute kidney failure, unspecified (principal); E43 Unspecified severe protein-calorie malnutrition; D68.59 Other primary thrombophilia; F32.9 Major depressive disorder, single episode, unspecified; Z20.822 Contact with and (suspected) exposure to COVID-19; I10 Essential (primary) hypertension; E10.65 Type 1 diabetes mellitus with hyperglycemia; Z53.29 Procedure and treatment not carried out because of patient's decision for other reasons; F41.1 Generalized anxiety disorder; Z91.14 Patient's other noncompliance with medication regimen; Z86.16 Personal history of COVID-19; Z79.4 Long term (current) use of insulin; Z90.49 Acquired absence of other specified parts of digestive tract; Z88.0 Allergy status to penicillin; Z88.8 Allergy status to other drugs, medicaments and biological substances; Z86.711 Personal history of pulmonary embolism; Z83.3 Family history of diabetes mellitus; Z82.49 Family history of ischemic heart disease and other diseases of the circulatory system; Z87.891 Personal history of nicotine dependence; Z68.24 Body mass index [BMI] 24.0-24.9, adult